=== PATIENT | male | born 1950 | race Caucasian/White ===

== ENCOUNTER 2019-02-16 19:23 | Inpatient (IN) | payer OTHER ==
[~2019-02-16] VITALS: Ht 172.7 cm; Wt 83.4 kg
[2019-02-16] MEDS ORDERED: ALBU3IS INH (20:32)
[2019-02-16] MEDS ORDERED: ALBU2.5V5 NEB (20:32)
[2019-02-16] MEDS ORDERED: ASCO500 PO (20:33)
[2019-02-16] MEDS ORDERED: AMLO10 PO (20:33)
[2019-02-16] MEDS ORDERED: Flonase 0.05% N16 GM (20:34)
[2019-02-16] MEDS ORDERED: GUAI200 PO (20:35)
[2019-02-16] MEDS ORDERED: Norco 10-325 T1 EACH PO (20:35)
[2019-02-16] MEDS ORDERED: LISI20 PO (20:36)
[2019-02-16] MEDS ORDERED: MOME220I INH (20:37)
[2019-02-16] MEDS ORDERED: THERA1 EACH PO (20:37)
[2019-02-16] MEDS ORDERED: STIOLTO RESPIMAT4 GM INH (20:38)
[2019-02-16] MEDS ORDERED: PANT40 PO (20:39)
[2019-02-16] MEDS ORDERED: PRED5 PO (20:39)
[2019-02-16 21:17] LABS: BASOPHILS ABSOLUTE AUTO 0.08 K/mm3 (0.00-0.23); BASOPHILS PERCENT AUTO 1 % (0-2); EOSINOPHILS ABSOLUTE AUTO 0.07 K/mm3 (0.00-0.68); EOSINOPHILS PERCENT AUTO 0 % (0-6); Hematocrit 35.4 % (37.0-53.0); Hemoglobin 11.6 g/dL (13.5-17.5); IMMATURE GRAN ABSOLUTE AUTO 0.08 K/mm3 (0.00-0.10); IMMATURE GRAN PERCENT AUTO 1 % (0-1); LYMPHOCYTES ABSOLUTE AUTO 1.53 K/mm3 (0.84-5.20); LYMPHOCYTES PERCENT AUTO 10 % (21-46); MONOCYTES ABSOLUTE AUTO 1.07 K/mm3 (0.16-1.47); MONOCYTES PERCENT AUTO 7 % (4-13); Mean Corpuscular HGB 30.3 pg (26.0-34.0); Mean Corpuscular HGB Conc 32.8 g/dL (31.5-36.5); Mean Corpuscular Volume 92 fL (80-100); Mean Platelet Volume 9.5 fL (9.1-12.4); NEUTROPHILS ABSOLUTE AUTO 13.16 K/mm3 (1.96-9.15); NEUTROPHILS PERCENT AUTO 82 % (41-73); Platelet Count 342 K/mm3 (150-400); RDW Coefficient Variation 12.4 % (11.7-14.2); RDW Standard Deviation 42.1 fL (35.1-46.3); Red Blood Cell Count 3.83 M/mm3 (4.30-5.90); White Blood Cell Count 15.99 K/mm3 (4.00-11.30)
[2019-02-16 21:42] LABS: Alanine Aminotransfer (ALT/SGP 12 U/L (12-78); Albumin/Globulin Ratio 0.7 (0.8-1.8); Alk Phos 63 U/L (50-136); Anion Gap 7 mmol/L (6-16); Aspartate Aminotrans (AST/SGOT 12 U/L (12-37); Bilirubin, Total 0.4 mg/dL (0.1-1.0); Blood Urea Nitrogen 14 mg/dL (8-24); Bun/Creatinine Ratio 20.3 (12.0-20.0); CO2, Blood 26 mmol/L (21-32); Calcium, Blood 8.8 mg/dL (8.5-10.1); Chloride, Blood 105 mmol/L (98-108); Creatinine, Blood 0.69 mg/dL (0.60-1.20); Globulin, Blood 4.1 g/dL (2.2-4.0); Glomerular Filtration Rate >60 (60-); Glucose, Blood 100 mg/dL (70-99); Sodium, Blood 138 mmol/L (136-145); Total Protein, Blood 7.1 g/dL (6.4-8.2)
[2019-02-17 04:46] LABS: BASOPHILS ABSOLUTE AUTO 0.05 K/mm3 (0.00-0.23); BASOPHILS PERCENT AUTO 0 % (0-2); EOSINOPHILS ABSOLUTE AUTO 0.02 K/mm3 (0.00-0.68); EOSINOPHILS PERCENT AUTO 0 % (0-6); Hematocrit 35.4 % (37.0-53.0); Hemoglobin 11.2 g/dL (13.5-17.5); IMMATURE GRAN ABSOLUTE AUTO 0.06 K/mm3 (0.00-0.10); IMMATURE GRAN PERCENT AUTO 0 % (0-1); LYMPHOCYTES ABSOLUTE AUTO 1.02 K/mm3 (0.84-5.20); LYMPHOCYTES PERCENT AUTO 7 % (21-46); MONOCYTES PERCENT AUTO 1 % (4-13); Mean Corpuscular HGB 29.1 pg (26.0-34.0); Mean Corpuscular HGB Conc 31.6 g/dL (31.5-36.5); Mean Corpuscular Volume 92 fL (80-100); Mean Platelet Volume 9.6 fL (9.1-12.4); NEUTROPHILS ABSOLUTE AUTO 12.91 K/mm3 (1.96-9.15); NEUTROPHILS PERCENT AUTO 91 % (41-73); Platelet Count 305 K/mm3 (150-400); RDW Coefficient Variation 12.4 % (11.7-14.2); Red Blood Cell Count 3.85 M/mm3 (4.30-5.90); White Blood Cell Count 14.26 K/mm3 (4.00-11.30)
[2019-02-17 05:01] LABS: International Normalized Ratio 1.13; Prothrombin Time Results 11.8 Sec (9.7-11.5)
[2019-02-17 05:08] LABS: Anion Gap 9 mmol/L (6-16); Blood Urea Nitrogen 16 mg/dL (8-24); Bun/Creatinine Ratio 22.1 (12.0-20.0); CO2, Blood 23 mmol/L (21-32); Calcium, Blood 8.6 mg/dL (8.5-10.1); Chloride, Blood 105 mmol/L (98-108); Creatinine, Blood 0.73 mg/dL (0.60-1.20); Glomerular Filtration Rate >60 (60-); Glucose, Blood 116 mg/dL (70-99); Potassium, Blood 4.1 mmol/L (3.5-5.5); Sodium, Blood 137 mmol/L (136-145)
--- NOTE | 2019-02-17 07:26 | NUR ---
call light in reach, ns infusing in iv in r ac, room air refused cpap, non productive cough, bsr report given to day shift nurse
--- NOTE | 2019-02-17 18:46 | NUR ---
PT AOX4 AND COOPERATIVE OF CARE. PT HAS BEEN RESTING IN BED ALL DAY. PT REPORTS KNECK AND CHEST PAIN TREATED PER EMAR. THIS SEEMS EFFECTIVE. PT STATES HE HAS THIS TYPE OF PAIN CHRONICALLY. PT STATES HE IS FEELING BETTER. PT DOES COUGH OFF AND ON. WILL CONTINUE TO MONITOR.
--- NOTE | 2019-02-17 22:13 | NUR ---
PT HAVING INCREASED ANXIETY WITH DYSPNEA, RECEIVED BREATHING TREATMENT WITHOUT RELIEF. PT VOICED HE HAS TAKEN ATIVAN IN PAST FOR ANXIETY. Amilcar LÓPEZ NP NOTIFIED WITH ORDERS FOR ATIVAN 1 MG PO NOW.
[2019-02-18 05:26] LABS: BASOPHILS ABSOLUTE AUTO 0.04 K/mm3 (0.00-0.23); BASOPHILS PERCENT AUTO 0 % (0-2); EOSINOPHILS PERCENT AUTO 0 % (0-6); Hematocrit 33.7 % (37.0-53.0); Hemoglobin 10.5 g/dL (13.5-17.5); IMMATURE GRAN ABSOLUTE AUTO 0.25 K/mm3 (0.00-0.10); IMMATURE GRAN PERCENT AUTO 1 % (0-1); LYMPHOCYTES ABSOLUTE AUTO 0.77 K/mm3 (0.84-5.20); LYMPHOCYTES PERCENT AUTO 3 % (21-46); MONOCYTES ABSOLUTE AUTO 0.49 K/mm3 (0.16-1.47); MONOCYTES PERCENT AUTO 2 % (4-13); Mean Corpuscular HGB 28.9 pg (26.0-34.0); Mean Corpuscular HGB Conc 31.2 g/dL (31.5-36.5); Mean Corpuscular Volume 93 fL (80-100); Mean Platelet Volume 9.9 fL (9.1-12.4); NEUTROPHILS ABSOLUTE AUTO 25.39 K/mm3 (1.96-9.15); NEUTROPHILS PERCENT AUTO 94 % (41-73); Platelet Count 326 K/mm3 (150-400); Red Blood Cell Count 3.63 M/mm3 (4.30-5.90); White Blood Cell Count 26.94 K/mm3 (4.00-11.30)
[2019-02-18 05:53] LABS: Albumin, Blood 2.7 g/dL (3.4-5.0); Anion Gap 8 mmol/L (6-16); Blood Urea Nitrogen 28 mg/dL (8-24); Bun/Creatinine Ratio 29.9 (12.0-20.0); CO2, Blood 25 mmol/L (21-32); Calcium, Blood 8.8 mg/dL (8.5-10.1); Chloride, Blood 105 mmol/L (98-108); Creatinine, Blood 0.94 mg/dL (0.60-1.20); Glomerular Filtration Rate >60 (60-); Glucose, Blood 188 mg/dL (70-99); Phosphorus, Blood 2.4 mg/dL (2.5-4.9); Potassium, Blood 3.7 mmol/L (3.5-5.5); Sodium, Blood 138 mmol/L (136-145)
--- NOTE | 2019-02-18 06:55 | NUR ---
68 Y/O MALE HAD RESTLESS NIGHT WITH OCCASIONAL NON PRODUCTIVE, HARSH COUGH NOTED. PTS VOICED THAT HE PULLED SMALL PIECE DRIED SKIN FROM HIS LOWER LIP AND HAS SCANT BLEEDING AT TIMES NOTED. THIS NURSE PROVIDED AND ENCOURAGED PATIENT TO APPLY LIP OINTMENT GENEROUSLY TO LIPS WITH ACKNOWLEDGEMENT NOTED. PTS LUNGS ARE DIMINISHED THROUGHOUT. PT EDUCATED ON NEED TO QUIT SMOKING (SMOKES 1/2 TO 1 PACK A DAY CURRENTLY RIGHT NOW). PT DENIES PAIN OR NAUSEA. PT ALERT AND ORIENTED X 4. PTS TELEMETRY REFLECTS PER [employer] DIRECTOR ELISHA NSR WITH BBB AND OCCASIONAL PAC WITH HEART RATE 68. PTS BED LOW POSITION, CALL LIGHT AT SIDE.
[2019-02-18 10:53] LABS: Vancomycin, Trough 14.7 ug/mL (5.0-10.0)
--- NOTE | 2019-02-18 19:42 | NUR ---
SHIFT SUMMARY PT A&Ox4. ANXIOUS AND COOPERTIVE WITH CARE. PT RESTING IN BED DURING IN SHIFT, IND IN ROOM. PT REPORTS CHRONIC NECK/BACK PAIN, MEDICATED X2 PER EMAR. PT SOB AT REST AT TIMES, SOB WITH EXERTION, >92% ON RA, LS DIM, BREATHING TREATMENTS PER RT. PT REPROTS NAUSEA WITH ONE EPISODE EMESIS, REFUSED MEDICATIONS. PT RECIEVED IN ANTIBIOTICS AND STEROIDS. DR POWELL AT BEDSIDE THIS AFTERNOON. VSS. NO OTHER ACUTE CHANGES NOTED DURING SHIFT. REPORT GIVEN TO ONCOMING RN.
[2019-02-19 04:43] LABS: BASOPHILS ABSOLUTE AUTO 0.04 K/mm3 (0.00-0.23); BASOPHILS PERCENT AUTO 0 % (0-2); EOSINOPHILS PERCENT AUTO 0 % (0-6); Hematocrit 32.6 % (37.0-53.0); Hemoglobin 10.5 g/dL (13.5-17.5); IMMATURE GRAN ABSOLUTE AUTO 0.47 K/mm3 (0.00-0.10); IMMATURE GRAN PERCENT AUTO 2 % (0-1); LYMPHOCYTES ABSOLUTE AUTO 0.62 K/mm3 (0.84-5.20); LYMPHOCYTES PERCENT AUTO 2 % (21-46); MONOCYTES PERCENT AUTO 2 % (4-13); Mean Corpuscular HGB 29.5 pg (26.0-34.0); Mean Corpuscular HGB Conc 32.2 g/dL (31.5-36.5); Mean Corpuscular Volume 92 fL (80-100); NEUTROPHILS ABSOLUTE AUTO 25.77 K/mm3 (1.96-9.15); NEUTROPHILS PERCENT AUTO 94 % (41-73); Platelet Count 330 K/mm3 (150-400); RDW Coefficient Variation 12.3 % (11.7-14.2); RDW Standard Deviation 41.4 fL (35.1-46.3); Red Blood Cell Count 3.56 M/mm3 (4.30-5.90)
[2019-02-19 04:58] LABS: Albumin, Blood 2.6 g/dL (3.4-5.0); Anion Gap 6 mmol/L (6-16); Blood Urea Nitrogen 29 mg/dL (8-24); Bun/Creatinine Ratio 35.5 (12.0-20.0); CO2, Blood 26 mmol/L (21-32); Calcium, Blood 8.8 mg/dL (8.5-10.1); Chloride, Blood 109 mmol/L (98-108); Creatinine, Blood 0.82 mg/dL (0.60-1.20); Glomerular Filtration Rate >60 (60-); Glucose, Blood 183 mg/dL (70-99); Phosphorus, Blood 2.3 mg/dL (2.5-4.9); Sodium, Blood 141 mmol/L (136-145)
--- NOTE | 2019-02-19 06:08 | NUR ---
SHIFT SUMMARY: 68 Y/O MALE HAD OCCASIONAL BOUTS HARSH, LOUD COUGHING AT TIMES DURING SHIFT. PTS LUNG SOUNDS ARE DIMINISHED THROUGHOUT. PT HAS ANXIETY AT TIMES WITH ATIVAN 0.5MG IVP GIVEN X 1 AND NORCO 5/325MG PO X 1 GIVEN FOR BACK PAIN WITH RELIEF FELT. PT DENIES NAUSEA. PT RESTED HIGH FOWLERS POSITION ALL NIGHT. PT HAPPY AND COOPERATIVE. PTS BED LOW POSITION, CALL LIGHT AT SIDE.
--- NOTE | 2019-02-19 17:57 | NUR ---
PT HAS BEEN STABLE THIS SHIFT. PT HAS PERSISTENT DRY HARSH COUGH. PT STARTED ON TESSALON PEARLS SCHEDULED. MEDICATED WITH NORCO X2 THIS SHIFT FOR CHRONIC NECK PAIN. ATIVAN X1 FOR SIGNIFICANT ANXIETY WITH COUGHING ATTACK. TELE NSR. PT MIN ASSIST OOB, WORKED WELL WITH PT. DYSPNEA ON EXERTION. REMAINS ON RA. USING URINAL INDEP. EATING, DRINKING AND VOIDING WELL. AM LABS TO BE DRAWN. PT USES CALL LIGHT APPROPRIATELY NEEDED.
[2019-02-20 05:27] LABS: BASOPHILS ABSOLUTE AUTO 0.04 K/mm3 (0.00-0.23); BASOPHILS PERCENT AUTO 0 % (0-2); EOSINOPHILS PERCENT AUTO 0 % (0-6); Hematocrit 34.6 % (37.0-53.0); Hemoglobin 11.3 g/dL (13.5-17.5); IMMATURE GRAN ABSOLUTE AUTO 0.46 K/mm3 (0.00-0.10); IMMATURE GRAN PERCENT AUTO 2 % (0-1); LYMPHOCYTES ABSOLUTE AUTO 0.79 K/mm3 (0.84-5.20); LYMPHOCYTES PERCENT AUTO 4 % (21-46); MONOCYTES ABSOLUTE AUTO 0.41 K/mm3 (0.16-1.47); MONOCYTES PERCENT AUTO 2 % (4-13); Mean Corpuscular HGB 29.8 pg (26.0-34.0); Mean Corpuscular HGB Conc 32.7 g/dL (31.5-36.5); Mean Corpuscular Volume 91 fL (80-100); Mean Platelet Volume 9.9 fL (9.1-12.4); NEUTROPHILS ABSOLUTE AUTO 17.78 K/mm3 (1.96-9.15); NEUTROPHILS PERCENT AUTO 91 % (41-73); Platelet Count 322 K/mm3 (150-400); RDW Coefficient Variation 12.5 % (11.7-14.2); RDW Standard Deviation 41.7 fL (35.1-46.3); Red Blood Cell Count 3.79 M/mm3 (4.30-5.90); White Blood Cell Count 19.48 K/mm3 (4.00-11.30)
--- NOTE | 2019-02-20 05:50 | NUR ---
SHIFT SUMMARY PT ALERT AND ORIENTED, HAD A BETTER NIGHT THAN THE LAST TWO. SLEPT WELL, NOT MUCH COUGHING DURING THE NIGHT. RECEIVED PAIN MEDICATION X1 TONIGHT. ALSO RECEIVED IV ATIVAN X1. NO ACUTE EVENTS NOTED DURING THE NIGHT, WILL CONTINUE TO MONITOR.
[2019-02-20 05:56] LABS: Alanine Aminotransfer (ALT/SGP 22 U/L (12-78); Albumin, Blood 2.7 g/dL (3.4-5.0); Albumin/Globulin Ratio 0.8 (0.8-1.8); Alk Phos 49 U/L (50-136); Anion Gap 7 mmol/L (6-16); Aspartate Aminotrans (AST/SGOT 22 U/L (12-37); Bilirubin, Total 0.2 mg/dL (0.1-1.0); Blood Urea Nitrogen 26 mg/dL (8-24); Bun/Creatinine Ratio 35.6 (12.0-20.0); CO2, Blood 26 mmol/L (21-32); Calcium, Blood 8.6 mg/dL (8.5-10.1); Chloride, Blood 108 mmol/L (98-108); Creatinine, Blood 0.73 mg/dL (0.60-1.20); Globulin, Blood 3.6 g/dL (2.2-4.0); Glomerular Filtration Rate >60 (60-); Glucose, Blood 144 mg/dL (70-99); Magnesium, Blood 2.1 mg/dL (1.6-2.4); Sodium, Blood 141 mmol/L (136-145); Total Protein, Blood 6.3 g/dL (6.4-8.2)
[2019-02-20 06:01] LABS: Thyroid Stimulating Hormone 0.242 uIU/mL (0.360-4.800)
[2019-02-20] MEDS ORDERED: BENZ100A PO (14:30)
[2019-02-20] MEDS ORDERED: MIRT30ST MM (14:31)
[2019-02-20] MEDS ORDERED: LEVFLO500 PO (14:31)
[2019-02-20] MEDS ORDERED: PRED20 PO ×2 (14:32→14:33)
--- NOTE | 2019-02-20 17:43 | NUR ---
DISCHARGE NOTE PT DISCHARGED VIA W/C POV WITH SISTER. IV DISCONTINUED INTACT. LEFT MESSAGE FOR RAJANI IN CARE MANAGEMENT TO OBTAIN A PCP FOR PATIENT AT [facility]. CARE MANAGERS TO CALL PATIENT TO PROVIDE INFORMATION FOR FOLLOW UP. PT VERBALIZED UNDERSTANDING OF RX AND DISCHARGE INSTRUCTIONS AND ENCOURAGED TO RETURN TO ED IF SOB OR IF SYMPTOMS WORSEN. ALL BELONGINGS TAKEN WITH PATIENT AT TIME OF DISCHARGE.
== END 2019-02-20 17:50 | disposition home or self-care (01) | DRG 872 ==
LOC: ER 19:23 → MEDS 21:21 → ENPENDDIS 02-20 12:45 → MEDS 02-20 17:50
PROVIDERS: Family Medicine; Internal Medicine; Nurse Practitioner Acute Care; ADMIT Hospitalist
DX: A41.9 Sepsis, unspecified organism (principal); J44.1 Chronic obstructive pulmonary disease with (acute) exacerbation; F11.20 Opioid dependence, uncomplicated; A31.0 Pulmonary mycobacterial infection; J44.0 Chronic obstructive pulmonary disease with (acute) lower respiratory infection; F41.9 Anxiety disorder, unspecified; I10 Essential (primary) hypertension; M54.9 Dorsalgia, unspecified; G89.29 Other chronic pain; G47.33 Obstructive sleep apnea (adult) (pediatric); M06.9 Rheumatoid arthritis, unspecified; K21.9 Gastro-esophageal reflux disease without esophagitis; E78.5 Hyperlipidemia, unspecified; Z87.891 Personal history of nicotine dependence; J20.9 Acute bronchitis, unspecified
CPT/HCPCS: 36415; 71046; 80048; 80053; 80069; 80202; 83605; 83735; 83880; 84145; 84443; 84484; 85025; 85610; 87015; 87040; 87070; 87116; 87205; 87206; 94640; 94760; 96374; 96375; 97116; 97161; 97166; 97530; 99285-25; A9270; J0456; J1650; J1956; J2060; J2543; J2930; J3370; J7030; J7050

== ENCOUNTER 2020-02-09 07:26 | Emergency (ER) | payer OTHER, MEDICARE ==
[~2020-02-09] VITALS: Ht 172.7 cm; Wt 104.3 kg
[~2020-02-09 07:26] MED LIST: ALBU2.5V5 NEB; ALBU3IS INH; AMLO10 PO; ASCO500 PO; BENZ100A PO; Flonase 0.05% N16 GM; GUAI200 PO; LEVFLO500 PO; LISI20 PO; MIRT30ST MM; MOME220I INH; Norco 10-325 T1 EACH PO; PANT40 PO; PRED20 PO; PRED5 PO; STIOLTO RESPIMAT4 GM INH; THERA1 EACH PO
[2020-02-09 08:03] LABS: Source, Urine Catheter
[2020-02-09 08:19] LABS: Bilirubin, Urine Neg (Neg); Blood, Urine 5+ (Neg); Glucose Qualitative, Urine Neg (Neg); Ketones, Urine Neg (Neg); Leukocyte Esterase, Urine 1+ (Neg); Nitrite, Urine Pos (Neg); Protein, Urine 3+ (Neg); Specific Gravity, Urine 1.015 (1.003-1.022); Urobilinogen, Urine NORM (Normal)
[2020-02-09 08:28] LABS: Appearance, Urine Hazy (Clear); Color, Urine Yellow (P-Yellow)
[2020-02-09 08:30] LABS: Bacteria Mod /hpf; Red Blood Cells, Urine TNTC /hpf (0-2); Squamous Epithelial Cells Rare /hpf (Few)
[2020-02-09] MEDS ORDERED: CEPH500 PO (08:38)
== END 2020-02-09 09:01 | disposition home or self-care (01) ==
LOC: ER 07:26
PROVIDERS: Emergency Medicine
DX: N39.0 Urinary tract infection, site not specified (principal); R33.9 Retention of urine, unspecified; J44.9 Chronic obstructive pulmonary disease, unspecified; I10 Essential (primary) hypertension; E78.5 Hyperlipidemia, unspecified; K21.9 Gastro-esophageal reflux disease without esophagitis; F41.9 Anxiety disorder, unspecified; F43.10 Post-traumatic stress disorder, unspecified; G47.33 Obstructive sleep apnea (adult) (pediatric); Z88.8 Allergy status to other drugs, medicaments and biological substances; Z79.899 Other long term (current) drug therapy; Z87.891 Personal history of nicotine dependence
CPT/HCPCS: 51702; 51798; 81001; 87086; 99283-25; A9270-GY

== ENCOUNTER 2020-04-25 21:30 | Inpatient (IN) | payer OTHER, MEDICARE ==
[~2020-04-25] VITALS: Ht 177.8 cm; Wt 111.2 kg
[~2020-04-25 21:30] MED LIST changes: +CEPH500 PO
[2020-04-25 22:05] LABS: BASOPHILS ABSOLUTE AUTO 0.06 K/mm3 (0.00-0.23); BASOPHILS PERCENT AUTO 1 % (0-2); EOSINOPHILS ABSOLUTE AUTO 0.09 K/mm3 (0.00-0.68); EOSINOPHILS PERCENT AUTO 1 % (0-6); Hematocrit 32.9 % (37.0-53.0); Hemoglobin 10.3 g/dL (13.5-17.5); IMMATURE GRAN ABSOLUTE AUTO 0.06 K/mm3 (0.00-0.10); IMMATURE GRAN PERCENT AUTO 1 % (0-1); LYMPHOCYTES ABSOLUTE AUTO 2.01 K/mm3 (0.84-5.20); LYMPHOCYTES PERCENT AUTO 19 % (21-46); MONOCYTES PERCENT AUTO 9 % (4-13); Mean Corpuscular HGB 26.6 pg (26.0-34.0); Mean Corpuscular HGB Conc 31.3 g/dL (31.5-36.5); Mean Corpuscular Volume 85 fL (80-100); Mean Platelet Volume 9.1 fL (9.1-12.4); NEUTROPHILS ABSOLUTE AUTO 7.49 K/mm3 (1.96-9.15); NEUTROPHILS PERCENT AUTO 70 % (41-73); Platelet Count 436 K/mm3 (150-400); RDW Coefficient Variation 14.3 % (11.7-14.2); RDW Standard Deviation 44.1 fL (35.1-46.3); Red Blood Cell Count 3.87 M/mm3 (4.30-5.90); White Blood Cell Count 10.71 K/mm3 (4.00-11.30)
[2020-04-25 22:24] LABS: Magnesium, Blood 1.9 mg/dL (1.6-2.4)
[2020-04-25 22:25] LABS: Alanine Aminotransfer (ALT/SGP 14 U/L (12-78); Albumin, Blood 2.5 g/dL (3.4-5.0); Albumin/Globulin Ratio 0.5 (0.8-1.8); Alk Phos 63 U/L (50-136); Anion Gap 7 mmol/L (6-16); Aspartate Aminotrans (AST/SGOT 15 U/L (12-37); Bilirubin, Total 0.2 mg/dL (0.1-1.0); Blood Urea Nitrogen 11 mg/dL (8-24); Bun/Creatinine Ratio 11.3 (12.0-20.0); CO2, Blood 25 mmol/L (21-32); Calcium, Blood 8.5 mg/dL (8.5-10.1); Chloride, Blood 109 mmol/L (98-108); Creatinine, Blood 0.97 mg/dL (0.60-1.20); Globulin, Blood 4.7 g/dL (2.2-4.0); Glomerular Filtration Rate >60 (60-); Glucose, Blood 107 mg/dL (70-99); Potassium, Blood 3.5 mmol/L (3.5-5.5); Sodium, Blood 141 mmol/L (136-145); Total Protein, Blood 7.2 g/dL (6.4-8.2)
[2020-04-25 22:34] LABS: PCO2 Arterial 36.9 mmHg (35-45); PO2 Arterial 107 mmHg (80-100)
[2020-04-26] MEDS ORDERED: Naproxen250 MG PO (01:05)
[2020-04-26 02:40] LABS: Source, Urine Clean Catch
[2020-04-26 02:42] LABS: Blood, Urine 5+ (Neg); Glucose Qualitative, Urine Neg (Neg); Ketones, Urine 2+ (Neg); Leukocyte Esterase, Urine 3+ (Neg); Nitrite, Urine Neg (Neg); Protein, Urine 3+ (Neg); Specific Gravity, Urine 1.025 (1.003-1.022); Urobilinogen, Urine 2+ (Normal)
[2020-04-26 02:55] LABS: Appearance, Urine Cloudy (Clear); Bilirubin, Urine 1+ (Neg); Color, Urine Brown (P-Yellow)
[2020-04-26 02:56] LABS: Amorphous Light (0-Heavy); Bacteria Mod /hpf; Mucus Light (0-Heavy); Red Blood Cells, Urine TNTC /hpf (0-2); Squamous Epithelial Cells Not Seen /hpf (Few); White Blood Cells, Urine TNTC /hpf (0-5)
[2020-04-26] MEDS ORDERED: Hair, Skin & N1 EACH PO (03:12)
[2020-04-26] MEDS ORDERED: Prednisone10 MG PO (03:15)
--- NOTE | 2020-04-26 06:47 | NUR ---
04/26/20 0630 PT WAS ABLE TO SLEEP FOR SHORT TIME AFTER MEDICATED FOR PAIN AND COUGH. O2 AT 3LPM IA N/C. BP HAS BEEN HIGH AND WAS MEDICATED. STILL WITH SEVERE SOB JUST TALKING. SEE VITALS FOR O2 SATS. VOIDING QS.
--- NOTE | 2020-04-26 18:17 | NUR ---
PT HAS BEEN PLEASANT TODAY. PAIN MANAGED WITH NEW HOME NORCO DOSING. NO NEW CONCERNS AT THIS TIME. NEW IV PLACED TODAY. PT STATES FEELS IMPROVED TODAY. BED IN LOW POSITION, CALL LITE IN REACH, CALLS APPROP
[2020-04-27 00:46] LABS: Adenovirus Not Detected (NOT DETECT); Bordetella pertussis Not Detected (NOT DETECT); Chlamydophila pneumoniae Not Detected (NOT DETECT); Coronavirus 229E Not Detected (NOT DETECT); Coronavirus HKU1 Not Detected (NOT DETECT); Coronavirus NL63 Not Detected (NOT DETECT); Coronavirus OC43 Not Detected (NOT DETECT); Human Metapneumovirus Not Detected (NOT DETECT); Human Rhinovirus/Enterovirus Not Detected (NOT DETECT); Influenza A/2009-H1 Not Detected (NOT DETECT); Influenza A/H1 Not Detected (NOT DETECT); Influenza A/H3 Not Detected (NOT DETECT); Influenza B Not Detected (NOT DETECT); Mycoplasma pneumoniae Not Detected (NOT DETECT); Parainfluenza Virus 1 Not Detected (NOT DETECT); Parainfluenza Virus 2 Not Detected (NOT DETECT); Parainfluenza Virus 3 Not Detected (NOT DETECT); Parainfluenza Virus 4 Not Detected (NOT DETECT); Respiratory Syncytial Virus Not Detected (NOT DETECT); SARS-Cov-2 (COVID-19), BioFire Not Detected (NOT DETECT)
--- NOTE | 2020-04-27 04:27 | NUR ---
SHIFT SUMMARY PT HAS AHD NO ACUTE CHANGES THIS SHIFT, MEDICATED FOR NECK/BACK PAIN (05/09), PT SLEPT AFTER ADMIN THEN ON/OFF T/O THE NIGHT, NO OTHER C/O ANY KIND, A&O, ST BY ASSIT TO BR, USES CALL LIGHT APPROP, PT SLEEPING AT THIS TIME, WILL CONT TO MONITOR UNTIL REPORT GIVEN TO DAY RN.
[2020-04-27 05:15] LABS: BASOPHILS ABSOLUTE AUTO 0.01 K/mm3 (0.00-0.23); BASOPHILS PERCENT AUTO 0 % (0-2); EOSINOPHILS PERCENT AUTO 0 % (0-6); Hematocrit 31.5 % (37.0-53.0); Hemoglobin 9.8 g/dL (13.5-17.5); IMMATURE GRAN ABSOLUTE AUTO 0.12 K/mm3 (0.00-0.10); IMMATURE GRAN PERCENT AUTO 1 % (0-1); LYMPHOCYTES ABSOLUTE AUTO 0.78 K/mm3 (0.84-5.20); LYMPHOCYTES PERCENT AUTO 6 % (21-46); MONOCYTES ABSOLUTE AUTO 0.41 K/mm3 (0.16-1.47); MONOCYTES PERCENT AUTO 3 % (4-13); Mean Corpuscular HGB 26.3 pg (26.0-34.0); Mean Corpuscular HGB Conc 31.1 g/dL (31.5-36.5); Mean Corpuscular Volume 85 fL (80-100); Mean Platelet Volume 9.5 fL (9.1-12.4); NEUTROPHILS ABSOLUTE AUTO 11.78 K/mm3 (1.96-9.15); NEUTROPHILS PERCENT AUTO 90 % (41-73); Platelet Count 450 K/mm3 (150-400); RDW Coefficient Variation 13.8 % (11.7-14.2); RDW Standard Deviation 42.8 fL (35.1-46.3); Red Blood Cell Count 3.73 M/mm3 (4.30-5.90)
[2020-04-27 05:34] LABS: Alanine Aminotransfer (ALT/SGP 13 U/L (12-78); Albumin, Blood 2.4 g/dL (3.4-5.0); Albumin/Globulin Ratio 0.5 (0.8-1.8); Alk Phos 56 U/L (50-136); Anion Gap 8 mmol/L (6-16); Aspartate Aminotrans (AST/SGOT 10 U/L (12-37); Bilirubin, Total 0.2 mg/dL (0.1-1.0); Blood Urea Nitrogen 21 mg/dL (8-24); Bun/Creatinine Ratio 25.5 (12.0-20.0); CO2, Blood 25 mmol/L (21-32); Calcium, Blood 8.9 mg/dL (8.5-10.1); Chloride, Blood 103 mmol/L (98-108); Creatinine, Blood 0.82 mg/dL (0.60-1.20); Globulin, Blood 4.4 g/dL (2.2-4.0); Glomerular Filtration Rate >60 (60-); Glucose, Blood 199 mg/dL (70-99); Potassium, Blood 3.9 mmol/L (3.5-5.5); Sodium, Blood 136 mmol/L (136-145); Total Protein, Blood 6.8 g/dL (6.4-8.2)
--- NOTE | 2020-04-27 16:39 | NUR ---
SHIFT SUMMARY PATIENT MEDCIATED X2 FOR PAIN THIS SHIFT. PATIENT COUGHING FREQUENTLY WITH LARGE AMOUNTS OF STICKY PLEGM PRODUCED. PATIENT BECOMES SHORT OF BREATH AND REQUIRES TIME TO RECOVER. PATIENT MAINTAINING OXYGEN SATURATION ABOVE 92% ON ROOM AIR BUT BECOMES DYSPNEIC WITH MINIMAL ACTIVITY. NEW ORDERS FOR COUGH SUPPRESSANTS GIVEN. PATIENT UP SBA IN ROOM. EATING AND DRINKING WELL.
--- NOTE | 2020-04-28 04:55 | NUR ---
SHIFT SUMMARY PT HAS HAD NO ACUTE CHANGES THIS SHIFT, CONTINUES TO HAVE COUGHING SPELLS WHICH CAUSE PT TO BECOME SOB & VERY ANXIOUS, REPORTED POOR PAIN CONTROL & REC NEW ORDER FOR FENTAYL- REPORTS IMPROVED CONTROL, MEDICATED X2 FOR ELEVATED BP, SLEPT ON/OFF THRU THE NIGHT, UP WATCHING TV AT THIS TIME, CALL LIGHT IN REACH, WILL CONT TO MONITOR UNTIL REPORT GIVEN TO DAY RN.
--- NOTE | 2020-04-28 11:22 | NUR ---
brief meeting with pt during episode of shorness of breath. finally resting will return. Will see if [place] has directive on pt.
--- NOTE | 2020-04-28 18:52 | NUR ---
SHIFT SUMMARY PATIENT MEDICATED SEVERAL TIMES FOR PAIN THIS SHIFT. MEDICATED X1 FOR COUGH. PATIENT STATES HE IS FEELING SLIGHTLY BETTER BUT CONTINUES TO HAVE COUGHING FITS WITH ANY ACTIVITY AND AFTER BREATHING TREATMENTS. 2L/PRN FOR RECOVERY AFTER ACTIVITY. UP SBA TO BR, URINAL AT BEDSIDE. PALLIATIVE CARE CONSULTED. CALL LIGHT IN REACH.
--- NOTE | 2020-04-29 04:20 | NUR ---
SHIFT SUMMARY PT HAS HAD NO ACUTE CHANGES THIS SHIFT, MEDICATED PER OCT FOR PAIN, NO OTHER C/O ANY KIND, SLEPT BETTER LAST NIGHT THAN PREV 2 NIGHTS, COUGHING HAS DECREASED, PT WATCHING TV @ THIS TIME, CALL LIGHT IN REACH, WILL CONT TO MONITOR UNTIL REPORT GIVEN TO DAY RN.
--- NOTE | 2020-04-29 07:35 | NUR ---
ASSUMED CARE OF PT- BEDSIDE REPORT COMPLEATED WITH NIGHT RN YANET. PT ALERT AND ORIENTED SITTING UP INBED COMPLETING A BREATHING Tx AT THE TIME OF REPORT. PT ADMITTED FOR COPD EXACERBATION. PER REPORT PT GETS EXTREMELY SOB WITH ANY EXERTION. PT IS SLATED TO GET A DOSE OF LASIX TODAY (WHICH HE HAS NEVER BEFORE HAD). NIGHT RN STATED HE HAS URINARY FREQUENCY AND SOME FLANK PAIN,SHE PERFORMED A POST VOID BLADDER SCAN THAT SHOWED 41ML POST VOID. PT CURRENTLY APPEARS COMFORTABLE WITH NO S&S OF DISTRESS NOTED. NIGHT RN STATED HE GETS ANXIOUS WITH HIS SOB HOWEVER HE CAN NOT TAKE BENZODIAZIPINES. PER REPORT FROM NIGHT RN THE IV FENTANYL HELPS IN THESE CASES. SUGGESTION FROM NIGHT RN IS TO REQUEST AN IV PAIN MED THAT MIGHT LAST A BIT LONGER SUCH DILAUDID IN MICHELLE OF FENTANYL THAT WEARS OFF MORE RAPIDLY. WILL SPEAK WITH ON MORNING ROUNDS.
--- NOTE | 2020-04-29 13:30 | NUR ---
pt resting he is very anxious and painfull. Good eye contact and engaged in his conversation. pt is currently living with his mother due to his health. He is [facility]. Recieved his medical advance directive from the [place] and copy to chart and to medical records. pt denies headache balance disturbance or falls no dizziness. States his eye site is getting much worse and his tinitus is a little worse. He has two broken teeth which are not showing s/s of infection. He wears and upper denture and no other teeth. He is not having trouble swallowing but feels he has to gulp air and he feels at times he has to grunt to push the air out. He denies nausea appetieite is just ok he is belching and passing gas but feels firm and distented. He denies constipation or loose stool. He has frequency and urgency of urination. He denies painfull urination. He states he has had bouts of painfull urination and at one time needed a alvarez catheter. Nursing stated they did post void bladder scan no residuals. He has general moderate joint pain. He chews an on tobacco product wtih nicotine in it. He denies medical marijuana. No vitamins or homeopathics or alcohol. Pt states he has [place] care and his urologist who does most of his care. He not sure his urologist is up to date. Sugested he might call his care nurse manager athletics and update her so they can do carefull follow up care that is not delayed. He states he does not hav pulmonolgist. Pt states he is sleeping but not for long he wakes easily he feels the lack of sleep and pain are getting to him. Asked for what bothers him more the breathing or the pain. He stated pain. Sttes some releif with the frntanyl but it does not last. Reviewed stategies for oral hydration and comofor. Dashawn is trying heat and cold therapy for his ribs will review pain medications with phsysician and get dsoem artificial tears.
--- NOTE | 2020-04-29 14:43 | NUR ---
CALLED DR CARTAGENA- PT HAS BEEN IN QUITE A BIT OF PAIN T/O THE MORING, PAIN MEDICATION HAS NOT BEEN SUFFICIENT, SPOKE TO ON MORNING ROUNDS, PALLIATIVE CARE CAME TO SEE THE PT NEW ORDERS FOR PAIN MEDICATION WERE ORDERED BUT DON'T START UNTIL 2099. CALLED AND LEFT A MESSAGE ATTEMPTING TO REQUEST A FIRST DOSE NOW FOR MS MELE. AWAITING A CALL BACK.
--- NOTE | 2020-04-29 15:34 | NUR ---
CALLED AND SPOKE TO DR CARTAGENA RECIEVED ORDR FOR FIRST DOSE NOW OF MS CONTIN.
--- NOTE | 2020-04-29 17:21 | NUR ---
Pt more comfortable less labored repirations. Review with pt dosing of long acting narcotics and breakthrough meds. Warned his of s/s of somulence and hpoventilation advised him we can adjut medication down if needed. Review needs to maintain his care. He [place]ologist in [place] through the [place] but last telehealth appoinment was concelled. He has seen Dr. Her in the past. Suggested he advocate for care through their office for better continuity. He has not had a pulmonry function test in many years. Suggested he schedule one. Encouraged stategies of good sleep and rest and activity. Will have LEXIE Pressley follow up with some pulmonary education and outpt follow up as pt high rsik for readmission. Suggest some physical therapy as pt high risk of falls due to dyspnea and urinary urgency.
--- NOTE | 2020-04-29 18:43 | NUR ---
SHIFT SUMMARY- PT ALERT AND ORIENTED AND USES THE URINAL INDEPENDENTLY, FREQUENTLY THE PT BECOMES OUT OF BREATH WITH ANY EXERTION. PT HAS HAD PAIN T/O THE DAY THAT SEEMS WELL MANAGED AT THIS TIME. NEW PAIN MEDICATION ORDERS IN THE EMAR. PT STATES THE PAIN IS STILL 7/10 BUT HE DOES NOT APPEAR TO BE IN DISTRESS LIKE HE DID EARLIER IN THE SHIFT. PLACED A HEATING/COOLING PAD IN HIS BED ON HIS LOWER BACK TO HELP WITH THE PAIN AND HE STATED THE PAIN IS BETTER WITH THE COOLING ON IT. WILL PASS ON TO NIGHT RN IN BEDSIDE REPORT.
--- NOTE | 2020-04-30 05:33 | NUR ---
SHIFT SUMMARY PT A&O X4, HAS HAD NO ACUTE CHANGES THIS SHIFT. USES URINAL INDEPENDENTLY. PT HAS COMPLAINTS OF PAIN T/O THE NIGHT, MEDICATED PER MAR. PT STATES HE FEELS MUCH BETTER AND HAS SLEPT T/O THE NIGHT WITH FEWER COUGHING FITS THAN LAST NIGHT. PT USES CALL LIGHT APPROPRIATELY AND STATES THAT HE IS EXCITED THAT HE MIGHT GET TO GO HOME TODAY. PT IS IN NO APPARENT DISTRESS AND STATES NO OTHER NEEDS AT THIS TIME. WILL CONTINUE TO MONITOR UNTIL REPORT GIVEN TO DAY RN.
[2020-04-30 05:45] LABS: Anion Gap 6 mmol/L (6-16); Blood Urea Nitrogen 30 mg/dL (8-24); Bun/Creatinine Ratio 31.2 (12.0-20.0); CO2, Blood 30 mmol/L (21-32); Calcium, Blood 8.4 mg/dL (8.5-10.1); Chloride, Blood 102 mmol/L (98-108); Creatinine, Blood 0.96 mg/dL (0.60-1.20); Glomerular Filtration Rate >60 (60-); Glucose, Blood 100 mg/dL (70-99); Potassium, Blood 3.8 mmol/L (3.5-5.5); Sodium, Blood 138 mmol/L (136-145)
[2020-04-30] MEDS ORDERED: PRED20 PO (14:29)
[2020-04-30] MEDS ORDERED: ACET325 PO (14:30)
[2020-04-30] MEDS ORDERED: BENZ100A PO (14:32)
[2020-04-30] MEDS ORDERED: DEXT30SU PO (14:34)
[2020-04-30] MEDS ORDERED: HYDCHL25 PO (14:36)
[2020-04-30] MEDS ORDERED: IPRAT-ALBUT 0.5-3 ML INH (14:38)
[2020-04-30] MEDS ORDERED: MORP30ER PO (14:39)
[2020-04-30] MEDS ORDERED: NICO21TP TOP (14:41)
[2020-04-30] MEDS ORDERED: LIQUID TEARS BOTHEYES (14:48)
[2020-04-30] MEDS ORDERED: DEEP SEA NASAL SPRAY (14:51)
--- NOTE | 2020-04-30 16:04 | NUR ---
DISCHARGE 1540 PT IS A&O. DURING THE TIME SPENT WITH PT HE WAS IN PAIN THAT WAS BEING MEDICATED WITH PRN PAIN MEDS AND MORNING MEDICATION. PAIN WAS ABLE TO DECREASE TO A ACCEPTABLE PAIN LEVEL. OFFERED PT HOT/COLD THERPHY, AND MEDITATION CHANNEL, BOTH WERE DECLINED. PT PRACTICED DEEP BREATHING TO HELP WITH CONTROL PAIN LEVEL. MOVEMENT WOULD CAUSE PAIN LEVEL TO RISE. PT DID NOT COMPLAIN OF N/V. PT ADVISED TO USE CALL LIGHT WHEN MOVING AROUND THE ROOM. DC VOLUNTEER TOOK PT DOWN TO [facility] VIA WHEELCHAIR. IV REMOVED, AND WAS WNL. WENT OVER DC PACKET WITH PT AND EMPHASISED THE [facility], ADVISED HE COULD GO TO THERE URGENT CARE.
== END 2020-04-30 15:44 | disposition home or self-care (01) | DRG 871 ==
LOC: ER 21:30 → MEDS 21:31 → ER 04-26 02:39 → MEDS 04-26 02:45
PROVIDERS: Emergency Medicine; Family Medicine; ADMIT Family Medicine
DX: A41.9 Sepsis, unspecified organism (principal); J18.9 Pneumonia, unspecified organism; J44.1 Chronic obstructive pulmonary disease with (acute) exacerbation; C79.89 Secondary malignant neoplasm of other specified sites; R04.2 Hemoptysis; Z68.41 Body mass index [BMI] 40.0-44.9, adult; A31.0 Pulmonary mycobacterial infection; J44.0 Chronic obstructive pulmonary disease with (acute) lower respiratory infection; Z20.828 Contact with and (suspected) exposure to other viral communicable diseases; C67.9 Malignant neoplasm of bladder, unspecified; R10.11 Right upper quadrant pain; I10 Essential (primary) hypertension; E78.5 Hyperlipidemia, unspecified; K21.9 Gastro-esophageal reflux disease without esophagitis; M19.90 Unspecified osteoarthritis, unspecified site; F41.9 Anxiety disorder, unspecified; F43.10 Post-traumatic stress disorder, unspecified; G47.33 Obstructive sleep apnea (adult) (pediatric); N28.1 Cyst of kidney, acquired; D64.9 Anemia, unspecified; D47.3 Essential (hemorrhagic) thrombocythemia; R60.0 Localized edema; E66.9 Obesity, unspecified; M54.9 Dorsalgia, unspecified; G89.29 Other chronic pain; M54.12 Radiculopathy, cervical region; Z88.8 Allergy status to other drugs, medicaments and biological substances; Z88.5 Allergy status to narcotic agent; Z79.1 Long term (current) use of non-steroidal anti-inflammatories (NSAID); Z79.891 Long term (current) use of opiate analgesic; Z79.899 Other long term (current) drug therapy; Z87.891 Personal history of nicotine dependence
CPT/HCPCS: 0202U; 36415; 36600; 71045; 71260; 74177; 76770; 80048; 80053; 81001; 82803; 83605; 83735; 83880; 84484; 85025; 87040; 87070; 87077; 87086; 87186; 87205; 93005; 93010; 94640; 94760; 94761; 96365; 96375; 99285-25; A9270; A9270-GY; G0378; J0360; J0696; J2930; J3010; J7050; J7512; Q9967; U0002

== ENCOUNTER → 2020-06-20 | Outpatient (CLI) | payer OTHER, MEDICARE ==
[~2020-06-20] MED LIST changes: +ACET325 PO; +DEEP SEA NASAL SPRAY; +DEXT30SU PO; +HYDCHL25 PO; +Hair, Skin & N1 EACH PO; +IPRAT-ALBUT 0.5-3 ML INH; +LIQUID TEARS BOTHEYES; +MORP30ER PO; +NICO21TP TOP; +Naproxen250 MG PO; +Prednisone10 MG PO
== END | disposition home or self-care (01) ==
LOC: LAB 14:43 → LAB SHORT 14:43 → LAB FUT 06-07 08:00
DX: C67.9 Malignant neoplasm of bladder, unspecified (principal)
CPT/HCPCS: 88108

== ENCOUNTER → 2020-06-25 | Outpatient (CLI) | payer OTHER, MEDICARE | LOC: LAB SHORT 17:55 → LAB 17:55 | DX: Z48.817 Encounter for surgical aftercare following surgery on the skin and subcutaneous tissue (principal); Z48.02 Encounter for removal of sutures; L08.9 Local infection of the skin and subcutaneous tissue, unspecified | CPT/HCPCS: 87070; 87205 ==

== ENCOUNTER 2020-08-20 12:45 | Emergency (ER) | payer OTHER, MEDICARE ==
[~2020-08-20] VITALS: Ht 172.7 cm; Wt 104.3 kg
[2020-08-20 13:12] LABS: BASOPHILS PERCENT AUTO 1 % (0-2); EOSINOPHILS ABSOLUTE AUTO 0.73 K/mm3 (0.00-0.68); EOSINOPHILS PERCENT AUTO 7 % (0-6); Hematocrit 37.1 % (37.0-53.0); Hemoglobin 11.7 g/dL (13.5-17.5); IMMATURE GRAN ABSOLUTE AUTO 0.03 K/mm3 (0.00-0.10); IMMATURE GRAN PERCENT AUTO 0 % (0-1); LYMPHOCYTES ABSOLUTE AUTO 2.01 K/mm3 (0.84-5.20); LYMPHOCYTES PERCENT AUTO 18 % (21-46); MONOCYTES ABSOLUTE AUTO 0.83 K/mm3 (0.16-1.47); MONOCYTES PERCENT AUTO 8 % (4-13); Mean Corpuscular HGB 25.4 pg (26.0-34.0); Mean Corpuscular HGB Conc 31.5 g/dL (31.5-36.5); Mean Corpuscular Volume 81 fL (80-100); Mean Platelet Volume 9.7 fL (9.1-12.4); NEUTROPHILS ABSOLUTE AUTO 7.33 K/mm3 (1.96-9.15); NEUTROPHILS PERCENT AUTO 67 % (41-73); Platelet Count 312 K/mm3 (150-400); RDW Coefficient Variation 14.9 % (11.7-14.2); RDW Standard Deviation 43.5 fL (35.1-46.3); Red Blood Cell Count 4.61 M/mm3 (4.30-5.90); White Blood Cell Count 11.03 K/mm3 (4.00-11.30)
[2020-08-20 13:35] LABS: Alanine Aminotransfer (ALT/SGP 19 U/L (12-78); Albumin, Blood 3.5 g/dL (3.4-5.0); Alk Phos 73 U/L (50-136); Anion Gap 8 mmol/L (6-16); Aspartate Aminotrans (AST/SGOT 19 U/L (12-37); Bilirubin, Total 0.4 mg/dL (0.1-1.0); Blood Urea Nitrogen 15 mg/dL (8-24); Bun/Creatinine Ratio 17.4 (12.0-20.0); CO2, Blood 26 mmol/L (21-32); Chloride, Blood 109 mmol/L (98-108); Creatinine, Blood 0.86 mg/dL (0.60-1.20); Globulin, Blood 3.6 g/dL (2.2-4.0); Glomerular Filtration Rate >60 (60-); Glucose, Blood 107 mg/dL (70-99); Potassium, Blood 3.8 mmol/L (3.5-5.5); Sodium, Blood 143 mmol/L (136-145); Total Protein, Blood 7.1 g/dL (6.4-8.2)
[2020-08-20] MEDS ORDERED: AZIT250 PO (15:56)
[2020-08-20] MEDS ORDERED: PRED20 PO (15:56)
[2020-08-20] MEDS ORDERED: Ventolin/Prove6.7 GM INH (15:56)
== END 2020-08-20 16:39 | disposition home or self-care (01) ==
LOC: ER 12:45
PROVIDERS: Emergency Medicine
DX: J44.1 Chronic obstructive pulmonary disease with (acute) exacerbation (principal); I10 Essential (primary) hypertension; E78.5 Hyperlipidemia, unspecified; K21.9 Gastro-esophageal reflux disease without esophagitis; Z88.8 Allergy status to other drugs, medicaments and biological substances; Z79.52 Long term (current) use of systemic steroids; Z87.891 Personal history of nicotine dependence; Z79.899 Other long term (current) drug therapy
CPT/HCPCS: 36415; 71045; 80053; 85025; 94640; 94644; 96374; 96375; 99285-25; J2270; J2930

== ENCOUNTER 2020-09-06 12:29 | Emergency (ER) | payer OTHER, MEDICARE ==
[~2020-09-06] VITALS: Ht 172.7 cm; Wt 108.9 kg
[~2020-09-06 12:29] MED LIST changes: -ALBU2.5V5 NEB; -ASCO500 PO; +AZIT250 PO; -LISI20 PO; -Norco 10-325 T1 EACH PO; -PANT40 PO; +Ventolin/Prove6.7 GM INH
[2020-09-06 13:37] LABS: BASOPHILS ABSOLUTE AUTO 0.11 K/mm3 (0.00-0.23); BASOPHILS PERCENT AUTO 1 % (0-2); EOSINOPHILS ABSOLUTE AUTO 0.23 K/mm3 (0.00-0.68); EOSINOPHILS PERCENT AUTO 2 % (0-6); Hematocrit 38.1 % (37.0-53.0); Hemoglobin 11.8 g/dL (13.5-17.5); IMMATURE GRAN ABSOLUTE AUTO 0.03 K/mm3 (0.00-0.10); IMMATURE GRAN PERCENT AUTO 0 % (0-1); LYMPHOCYTES ABSOLUTE AUTO 1.02 K/mm3 (0.84-5.20); LYMPHOCYTES PERCENT AUTO 9 % (21-46); MONOCYTES ABSOLUTE AUTO 0.37 K/mm3 (0.16-1.47); MONOCYTES PERCENT AUTO 3 % (4-13); Mean Corpuscular HGB 25.2 pg (26.0-34.0); Mean Corpuscular Volume 81 fL (80-100); Mean Platelet Volume 9.7 fL (9.1-12.4); NEUTROPHILS ABSOLUTE AUTO 9.87 K/mm3 (1.96-9.15); NEUTROPHILS PERCENT AUTO 85 % (41-73); Platelet Count 256 K/mm3 (150-400); RDW Coefficient Variation 15.2 % (11.7-14.2); RDW Standard Deviation 43.9 fL (35.1-46.3); Red Blood Cell Count 4.69 M/mm3 (4.30-5.90); White Blood Cell Count 11.63 K/mm3 (4.00-11.30)
[2020-09-06 13:56] LABS: Alanine Aminotransfer (ALT/SGP 21 U/L (12-78); Albumin, Blood 3.7 g/dL (3.4-5.0); Alk Phos 72 U/L (50-136); Anion Gap 8 mmol/L (6-16); Aspartate Aminotrans (AST/SGOT 13 U/L (12-37); Bilirubin, Total 0.6 mg/dL (0.1-1.0); Blood Urea Nitrogen 16 mg/dL (8-24); Bun/Creatinine Ratio 18.3 (12.0-20.0); CO2, Blood 26 mmol/L (21-32); Calcium, Blood 8.8 mg/dL (8.5-10.1); Chloride, Blood 108 mmol/L (98-108); Creatinine, Blood 0.88 mg/dL (0.60-1.20); Globulin, Blood 3.6 g/dL (2.2-4.0); Glomerular Filtration Rate >60 (60-); Glucose, Blood 135 mg/dL (70-99); Potassium, Blood 3.8 mmol/L (3.5-5.5); Sodium, Blood 142 mmol/L (136-145); Total Protein, Blood 7.3 g/dL (6.4-8.2); Troponin I 0.042 ng/mL (0.000-0.040)
[2020-09-06] MEDS ORDERED: ZITHROMAX250 MG PO (14:42)
[2020-09-06] MEDS ORDERED: Prednisone20 MG PO (14:42)
[2020-09-06] MEDS ORDERED: NYSTRIT TOP (14:42)
[2020-12-20] MEDS ORDERED: CALCITONIN-SAL3.7 M5 (11:12)
== END 2020-09-06 15:03 | disposition home or self-care (01) ==
LOC: ER 12:29
PROVIDERS: Emergency Medicine
DX: J44.1 Chronic obstructive pulmonary disease with (acute) exacerbation (principal); Z79.52 Long term (current) use of systemic steroids; Z88.0 Allergy status to penicillin; Z79.899 Other long term (current) drug therapy; Z87.891 Personal history of nicotine dependence
CPT/HCPCS: 36415; 71045; 74176; 80053; 83880; 84484; 85025; 93005; 93010; 94640; 99285-25; A9270

== ENCOUNTER 2020-10-31 18:47 | Emergency (ER) | payer OTHER, MEDICARE ==
[~2020-10-31] VITALS: Ht 172.7 cm; Wt 113.4 kg
[~2020-10-31 18:47] MED LIST changes: +NYSTRIT TOP; +Prednisone20 MG PO; +ZITHROMAX250 MG PO
[2020-10-31 19:39] LABS: BASOPHILS ABSOLUTE AUTO 0.07 K/mm3 (0.00-0.23); BASOPHILS PERCENT AUTO 1 % (0-2); EOSINOPHILS ABSOLUTE AUTO 0.16 K/mm3 (0.00-0.68); EOSINOPHILS PERCENT AUTO 2 % (0-6); Hematocrit 33.9 % (37.0-53.0); Hemoglobin 10.9 g/dL (13.5-17.5); IMMATURE GRAN ABSOLUTE AUTO 0.02 K/mm3 (0.00-0.10); IMMATURE GRAN PERCENT AUTO 0 % (0-1); LYMPHOCYTES ABSOLUTE AUTO 1.63 K/mm3 (0.84-5.20); LYMPHOCYTES PERCENT AUTO 18 % (21-46); MONOCYTES ABSOLUTE AUTO 0.91 K/mm3 (0.16-1.47); MONOCYTES PERCENT AUTO 10 % (4-13); Mean Corpuscular HGB 27.3 pg (26.0-34.0); Mean Corpuscular HGB Conc 32.2 g/dL (31.5-36.5); Mean Corpuscular Volume 85 fL (80-100); Mean Platelet Volume 9.7 fL (9.1-12.4); NEUTROPHILS ABSOLUTE AUTO 6.45 K/mm3 (1.96-9.15); NEUTROPHILS PERCENT AUTO 70 % (41-73); Platelet Count 255 K/mm3 (150-400); RDW Coefficient Variation 15.3 % (11.7-14.2); White Blood Cell Count 9.24 K/mm3 (4.00-11.30)
[2020-10-31 20:02] LABS: Anion Gap 6 mmol/L (6-16); Blood Urea Nitrogen 19 mg/dL (8-24); Bun/Creatinine Ratio 19.3 (12.0-20.0); CO2, Blood 26 mmol/L (21-32); Calcium, Blood 8.7 mg/dL (8.5-10.1); Chloride, Blood 108 mmol/L (98-108); Creatinine, Blood 0.98 mg/dL (0.60-1.20); Glomerular Filtration Rate >60 (60-); Glucose, Blood 130 mg/dL (70-99); Potassium, Blood 4.1 mmol/L (3.5-5.5); Sodium, Blood 140 mmol/L (136-145); Troponin I <0.015 ng/mL (0.000-0.040)
[2020-10-31] MEDS ORDERED: Prednisone50 MG PO (22:11)
[2020-10-31] MEDS ORDERED: Lasix40 MG PO (22:11)
[2020-12-20] MEDS ORDERED: CALCITONIN-SAL3.7 M5 (11:12)
== END 2020-10-31 22:41 | disposition home or self-care (01) ==
LOC: ER 18:47
PROVIDERS: Student in an Organized Health Care Education/Training Program
DX: J44.1 Chronic obstructive pulmonary disease with (acute) exacerbation (principal); Z88.8 Allergy status to other drugs, medicaments and biological substances; Z79.52 Long term (current) use of systemic steroids; Z79.899 Other long term (current) drug therapy
CPT/HCPCS: 36415; 71045; 80048; 83880; 84484; 85025; 93005; 93010; 94640; 99285-25; A9270

== ENCOUNTER 2020-11-15 14:13 | Inpatient (IN) | payer OTHER, MEDICARE ==
[~2020-11-15] VITALS: Ht 172.7 cm; Wt 126.5 kg
[~2020-11-15 14:13] MED LIST changes: +Lasix40 MG PO; +Prednisone50 MG PO
[2020-11-15 14:30] LABS: Base Excess Venous 0 mmol/L; Bicarbonate Venous 24.1 mmol/L (24.0-30.0); PCO2 Venous 40.8 mmHg (38-42); PO2 Venous 49.5 mmHg (38-42); pH Blood Venous 7.39 (7.34-7.37)
[2020-11-15 14:38] LABS: BASOPHILS ABSOLUTE AUTO 0.12 K/mm3 (0.00-0.23); BASOPHILS PERCENT AUTO 1 % (0-2); EOSINOPHILS ABSOLUTE AUTO 0.25 K/mm3 (0.00-0.68); EOSINOPHILS PERCENT AUTO 2 % (0-6); Hematocrit 35.1 % (37.0-53.0); Hemoglobin 11.2 g/dL (13.5-17.5); IMMATURE GRAN ABSOLUTE AUTO 0.04 K/mm3 (0.00-0.10); IMMATURE GRAN PERCENT AUTO 0 % (0-1); LYMPHOCYTES ABSOLUTE AUTO 1.53 K/mm3 (0.84-5.20); LYMPHOCYTES PERCENT AUTO 12 % (21-46); MONOCYTES ABSOLUTE AUTO 1.05 K/mm3 (0.16-1.47); MONOCYTES PERCENT AUTO 8 % (4-13); Mean Corpuscular HGB 26.7 pg (26.0-34.0); Mean Corpuscular HGB Conc 31.9 g/dL (31.5-36.5); Mean Corpuscular Volume 84 fL (80-100); Mean Platelet Volume 9.5 fL (9.1-12.4); NEUTROPHILS ABSOLUTE AUTO 9.67 K/mm3 (1.96-9.15); NEUTROPHILS PERCENT AUTO 76 % (41-73); Platelet Count 323 K/mm3 (150-400); RDW Coefficient Variation 15.1 % (11.7-14.2); RDW Standard Deviation 45.2 fL (35.1-46.3); Red Blood Cell Count 4.19 M/mm3 (4.30-5.90); White Blood Cell Count 12.66 K/mm3 (4.00-11.30)
[2020-11-15 15:07] LABS: Alanine Aminotransfer (ALT/SGP 23 U/L (12-78); Albumin, Blood 3.3 g/dL (3.4-5.0); Albumin/Globulin Ratio 0.9 (0.8-1.8); Alk Phos 73 U/L (50-136); Anion Gap 8 mmol/L (6-16); Aspartate Aminotrans (AST/SGOT 17 U/L (12-37); Bilirubin, Total 0.4 mg/dL (0.1-1.0); Blood Urea Nitrogen 9 mg/dL (8-24); Bun/Creatinine Ratio 9.5 (12.0-20.0); CO2, Blood 26 mmol/L (21-32); Calcium, Blood 8.5 mg/dL (8.5-10.1); Chloride, Blood 108 mmol/L (98-108); Creatinine, Blood 0.95 mg/dL (0.60-1.20); Globulin, Blood 3.6 g/dL (2.2-4.0); Glomerular Filtration Rate >60 (60-); Glucose, Blood 114 mg/dL (70-99); Potassium, Blood 3.7 mmol/L (3.5-5.5); Sodium, Blood 142 mmol/L (136-145); Total Protein, Blood 6.9 g/dL (6.4-8.2); Troponin I <0.015 ng/mL (0.000-0.040)
[2020-11-15 18:57] LABS: Influenza A, PCR NEGATIVE (NEGATIVE); Influenza B, PCR NEGATIVE (NEGATIVE); Resp Syncytial Virus, PCR NEGATIVE (NEGATIVE); SARS-Cov-2 (COVID-19) PCR, MMC NEGATIVE (NEGATIVE)
[2020-11-16 04:01] LABS: BASOPHILS ABSOLUTE AUTO 0.03 K/mm3 (0.00-0.23); BASOPHILS PERCENT AUTO 0 % (0-2); EOSINOPHILS PERCENT AUTO 0 % (0-6); Hematocrit 34.1 % (37.0-53.0); Hemoglobin 10.9 g/dL (13.5-17.5); IMMATURE GRAN ABSOLUTE AUTO 0.03 K/mm3 (0.00-0.10); IMMATURE GRAN PERCENT AUTO 0 % (0-1); LYMPHOCYTES ABSOLUTE AUTO 0.43 K/mm3 (0.84-5.20); LYMPHOCYTES PERCENT AUTO 4 % (21-46); MONOCYTES ABSOLUTE AUTO 0.07 K/mm3 (0.16-1.47); MONOCYTES PERCENT AUTO 1 % (4-13); Mean Corpuscular HGB 26.5 pg (26.0-34.0); Mean Corpuscular Volume 83 fL (80-100); NEUTROPHILS ABSOLUTE AUTO 10.19 K/mm3 (1.96-9.15); NEUTROPHILS PERCENT AUTO 95 % (41-73); Platelet Count 309 K/mm3 (150-400); RDW Coefficient Variation 15.1 % (11.7-14.2); RDW Standard Deviation 44.9 fL (35.1-46.3); Red Blood Cell Count 4.11 M/mm3 (4.30-5.90); White Blood Cell Count 10.75 K/mm3 (4.00-11.30)
[2020-11-16 04:22] LABS: Anion Gap 7 mmol/L (6-16); Blood Urea Nitrogen 15 mg/dL (8-24); Bun/Creatinine Ratio 16.4 (12.0-20.0); CO2, Blood 26 mmol/L (21-32); Calcium, Blood 8.9 mg/dL (8.5-10.1); Chloride, Blood 106 mmol/L (98-108); Creatinine, Blood 0.91 mg/dL (0.60-1.20); Glomerular Filtration Rate >60 (60-); Glucose, Blood 193 mg/dL (70-99); Potassium, Blood 4.5 mmol/L (3.5-5.5); Sodium, Blood 139 mmol/L (136-145)
--- NOTE | 2020-11-16 05:04 | NUR ---
SENIOR MAINTENANCE MECHANIC SUMMARY THE PT HAS REMAINED ON BIPAP ALL NIGHT W O2 SATS >94% W 30% O2. THE PT HAS C/O PAIN IN LOW BACK THAT IS NOT RESOLVED W HIS PAIN MEDICATION. THE PT HAS SLEPT FOR MOST OF THE SHIFT. BP WNL, VSS. WCTM. THERE IS A OPEN HOLE IN THE PT'S R ABDOMEN THAT HE STATES HE HAS NOT SHOWN THE PROVIDER, WILL PASS ON TO DAYSHIFT RN.
--- NOTE | 2020-11-16 13:13 | NUR ---
PHYSICIAN UPDATED PHYSICIAN UPDATED ON PT'S INCREASE IN PAIN LEVEL. MEDICATION ORDERED, SEE EMAR. PHYSICIAN NOTIFIED OF ULCER ON PT'S ABD. PHYSICIAN TO ASSESS WOUND TODAY OR TOMORROW. MEPLEX IN PLACE.
--- NOTE | 2020-11-16 19:00 | NUR ---
SHIFT SUMMARY PT ALERT AND ORIENTED X 4. PT OXYGEN SATURATION MAINTAINED AT 30% FIO2 BIPAP AND 2 L OF OXYGEN VIA NC. PT WORKED WITH PT THIS AM. ABLE TO TOLERATE FWW. HR STABLE. BP STABLE. PT REPORTS NO CP OR PRESSURE. PT REPORTS PAIN. PHYSICIAN AWARE, ORDERS PROVIDED PER EMAR. PAIN IS CHRONIC IN BACK/HIPS. PT ABLE TO TURN SELF IN BED NEEDED. WILL CONTINUE TO MONITOR UNTIL REPORT GIVEN TO DEJAH OWEN.
[2020-11-17 03:52] LABS: BASOPHILS ABSOLUTE AUTO 0.03 K/mm3 (0.00-0.23); BASOPHILS PERCENT AUTO 0 % (0-2); EOSINOPHILS ABSOLUTE AUTO 0.01 K/mm3 (0.00-0.68); EOSINOPHILS PERCENT AUTO 0 % (0-6); Hematocrit 31.8 % (37.0-53.0); Hemoglobin 10.2 g/dL (13.5-17.5); IMMATURE GRAN ABSOLUTE AUTO 0.12 K/mm3 (0.00-0.10); IMMATURE GRAN PERCENT AUTO 1 % (0-1); LYMPHOCYTES ABSOLUTE AUTO 0.77 K/mm3 (0.84-5.20); LYMPHOCYTES PERCENT AUTO 4 % (21-46); MONOCYTES ABSOLUTE AUTO 0.69 K/mm3 (0.16-1.47); MONOCYTES PERCENT AUTO 4 % (4-13); Mean Corpuscular HGB 26.8 pg (26.0-34.0); Mean Corpuscular HGB Conc 32.1 g/dL (31.5-36.5); Mean Corpuscular Volume 84 fL (80-100); Mean Platelet Volume 9.7 fL (9.1-12.4); NEUTROPHILS ABSOLUTE AUTO 18.06 K/mm3 (1.96-9.15); NEUTROPHILS PERCENT AUTO 92 % (41-73); Platelet Count 296 K/mm3 (150-400); RDW Coefficient Variation 15.1 % (11.7-14.2); RDW Standard Deviation 45.4 fL (35.1-46.3); White Blood Cell Count 19.68 K/mm3 (4.00-11.30)
[2020-11-17 04:08] LABS: Albumin, Blood 3.1 g/dL (3.4-5.0); Anion Gap 7 mmol/L (6-16); Blood Urea Nitrogen 32 mg/dL (8-24); Bun/Creatinine Ratio 32.7 (12.0-20.0); CO2, Blood 26 mmol/L (21-32); Chloride, Blood 106 mmol/L (98-108); Creatinine, Blood 0.98 mg/dL (0.60-1.20); Glomerular Filtration Rate >60 (60-); Glucose, Blood 169 mg/dL (70-99); Phosphorus, Blood 4.3 mg/dL (2.5-4.9); Potassium, Blood 4.6 mmol/L (3.5-5.5); Sodium, Blood 139 mmol/L (136-145)
--- NOTE | 2020-11-17 04:28 | NUR ---
EARLY YEARS TEACHER SUMMARY THE PT HAS REMAINED AXO X4. DR. FLANAGAN CONSULTED THE PT AT THE START OF THE SHFIT AND DURING THIS DISCUSSION THE CODE STATUS WAS TALKED ABOUT AND CHANGED FROM A DNI TO A DNR. THE PT WAS ON BIPAP FOR MUCH OF THE NIGHT AND THEN PLACED ON 2L VIA NC W O2 SATS >94%. PT CONTINUES TO HAVE SEVERE BACK PAIN AND GIVEN PAIN MEDICATION Q4H PER EMAR. PT SLEPT FOR MOST OF THE NIGHT W BIPAP ON. WCTM.
--- NOTE | 2020-11-17 10:55 | NUR ---
PHYSICIAN UPDATE/PT REPORTS CHEST PAIN PT REPORTS PAIN RADIATING DOWN R ARM AND INTO JAW. 06/08. VS STABLE. 12 LEAD EKG PROVIDED. PHYSICIAN INFORMED OF EKG RESULTS. INSTRUCTED TO GIVE PAIN MEDICATION PER EMAR. PT TO BE BACK ON BIPAP. PHYSICIAN TO SEE PT THIS AM AND LOOK AT EKG PAPERWORK. PT REPORTS PAIN RELIEF.
--- NOTE | 2020-11-17 11:00 | NUR ---
PHYSICIAN REVIEWS EKG NO CONCERNS AT THIS TIME
--- NOTE | 2020-11-17 11:06 | NUR ---
PHYSICIAN AT BEDSIDE TEST DRIVER AT BEDSIDE. DISCUSSION ABOUT CT SCAN REGARDING TREATMENTS. PHYSICIAN TO CONTACT OUTSIDE AGENCIES AND UPDATE. REQUESTING BREATHING TREATMENT AT THIS TIME. RT NOTIFIED.
--- NOTE | 2020-11-17 19:00 | NUR ---
SHIFT SUMMARY PT ALERT AND ORIENTED X 4. HR STABLE. BP STABLE. PT REPORTS CP THIS AM. SEE NOTES. CP RESOLVED. PT BELIEVES PAIN MAY BE D/T MUSCLE PAIN. REGIONAL PRODUCTION MANAGER TO SEE PT. SEE NOTES. PT ON NC AT 2 L T/O SHIFT OXYGEN SATURATION MAINTAINED ABOVE 92%. PT REPORTS PAIN IN BACK THAT IS CHRONIC. PROVIDED WITH MEDICATION PER EMAR. PT REPORTS MILD RELIEF. WILL CONTINUE TO MONITOR UNTIL REPORT GIVEN TO NIGHTSHIFT RN.
--- NOTE | 2020-11-18 04:21 | NUR ---
FIELD SECRETARY SUMMARY THE PT HAS REMAINED AXO X4 W NO CHANGES IN MENTATION, O2 SATS >92% ON 2L VIA NC. PT HAS HAD C/O PAIN IN R ELBOW AND BACK REQUIRING PAIN MEDICATION Q2H. PT CONTINUES TO PRODUCE FREQUENT SMALL AMOUNTS OF URINE BUT NO BM THIS SHIFT, BOWEL CARE GIVEN. PT SLEEPING ON AND OFF THROUGHOUT THE SHIFT. VSS, WCTM.
--- NOTE | 2020-11-18 17:48 | NUR ---
SUMMARY/TRANSFER PT TRANSFERRED UP TO ROOM 362, REPORT CALLED TO ALICIA OWEN, PT HAS BEEN PLEASANT AND COOPERATIVE T/O THE DAY, WORKED WITH PT/OT, HAS BEEN UP TO THE CHAIR AND UP TO THE BATHROOM WITH THE WALKER AND STANDBY ASSIST, PT MED PER EMAR FOR PAIN, REMAINS SOB WITH ANY ACTIVITY, VSS, WILL CONT TO MONITOR
--- NOTE | 2020-11-18 18:39 | NUR ---
SHIFT SUMMARY MAG ARRIVED FROM PCU TO MEDICAL FLOOR AROUND 530PM. PAINFUL, GOT 1 DOSE IV FENTANYL WHICH HELPED. SLIGHTLY WHEEZY LUNGS, ON 2L OXYGEN. RESTING IN BED, CALL LIGHT IN REACH, WCTM
[2020-11-19 04:39] LABS: BASOPHILS ABSOLUTE AUTO 0.01 K/mm3 (0.00-0.23); BASOPHILS PERCENT AUTO 0 % (0-2); EOSINOPHILS PERCENT AUTO 0 % (0-6); Hemoglobin 10.5 g/dL (13.5-17.5); IMMATURE GRAN ABSOLUTE AUTO 0.08 K/mm3 (0.00-0.10); IMMATURE GRAN PERCENT AUTO 1 % (0-1); LYMPHOCYTES ABSOLUTE AUTO 0.64 K/mm3 (0.84-5.20); LYMPHOCYTES PERCENT AUTO 5 % (21-46); MONOCYTES ABSOLUTE AUTO 0.69 K/mm3 (0.16-1.47); MONOCYTES PERCENT AUTO 6 % (4-13); Mean Corpuscular HGB 26.5 pg (26.0-34.0); Mean Corpuscular HGB Conc 31.8 g/dL (31.5-36.5); Mean Corpuscular Volume 83 fL (80-100); Mean Platelet Volume 9.8 fL (9.1-12.4); NEUTROPHILS ABSOLUTE AUTO 11.19 K/mm3 (1.96-9.15); NEUTROPHILS PERCENT AUTO 89 % (41-73); Platelet Count 248 K/mm3 (150-400); RDW Coefficient Variation 14.8 % (11.7-14.2); RDW Standard Deviation 44.6 fL (35.1-46.3); Red Blood Cell Count 3.96 M/mm3 (4.30-5.90); White Blood Cell Count 12.61 K/mm3 (4.00-11.30)
--- NOTE | 2020-11-19 04:45 | NUR ---
SHIFT SUMMARY- PT. A&OX4, PLEASANT, AND COOPEATIVE WITH CARE. ON 2L NC AND CONT BIOX IN PLACE. SATS AND VSS. PT. C/O CHRONIC BACK PAIN DURING THE NIGHT, MEDICATED PER EMAR WITH GOOD EFFECT. ASLEEP MOST OF THE NIGHT USES URINAL INDEPENDENTLY AT THE BEDSIDE. NO APPARENT DISTRESS NOTED. CALL LIGHT WITHIN REACH AND SIDE RAILS UPX2. WILL CONT TO MONITOR.
[2020-11-19 04:57] LABS: Anion Gap 4 mmol/L (6-16); Blood Urea Nitrogen 34 mg/dL (8-24); Bun/Creatinine Ratio 37.4 (12.0-20.0); CO2, Blood 29 mmol/L (21-32); Calcium, Blood 8.9 mg/dL (8.5-10.1); Chloride, Blood 106 mmol/L (98-108); Creatinine, Blood 0.91 mg/dL (0.60-1.20); Glomerular Filtration Rate >60 (60-); Glucose, Blood 143 mg/dL (70-99); Potassium, Blood 4.4 mmol/L (3.5-5.5); Sodium, Blood 139 mmol/L (136-145)
--- NOTE | 2020-11-19 17:35 | NUR ---
SUMMARY PT SITTING UP IN BED, HAS BEEN PLEASANT AND COOPERATIVE WITH CARE T/O THE DAY, MED PER EMAR FOR PAIN, UP IN THE CHAIR AT THE BEDSIDE TODAY, PT HAS WORKED WITH PT/OT, REMAINS SOB WITH ANY ACTIVITY, PLAN TO DC TO SNF SOON, VSS, WILL CONT TO MONITOR
--- NOTE | 2020-11-20 04:35 | NUR ---
SUMMARY PT HAD NO NEW ISSUES NOTED. PT DENIES SOB OR CX PAIN. PT CONTINUES TO HAVE ONGOING BACK DISCOMFORT. PT HAS SLEPT WELL T/O SHIFT. PT REMAINS ON ROOM AIR, SPO2>90%. PT CURRENTLY SLEEPING AND IN NO DISTRESS. CALL LIGHT IN REACH.
--- NOTE | 2020-11-20 16:55 | NUR ---
PATIENT IS ALERT AND ORIENTED AND COOPERATIVE WITH CARE. PATIENT C/OI ABDOMINAL PAIN TODAY, DR. ABAD NOTIFIED. HOME OXYGEN EVALUATION WAS COMPLETED TODAY. NO HOME OXYGEN NEEDED, RT SUGGESTS THAT THE PATIENT USE A BIPAP AT HOME. PATIENT C/O BACK PAIN, TREATED PER EMAR. PLAN IS TO DISCHARGE HOME TOMORROW AFTER LAST DOSE OF IV STEROIDS WITH HOME HEALTH. WILL CONTINUE TO MONITOR
--- NOTE | 2020-11-21 18:19 | NUR ---
PATIENT IS ALERT AND ORIENTED AND COOPERATIVE WITH CARE. C/O BACK PAIN, MEDICATED PER EMAR. BERE IS SUPPOSED TO SEE THE PATIENT REGARDING A TRILOGY. PATIENT C/O ABDOMINAL PAIN, ABDOMINAL ULTRASOUND COMPLETED. WILL CONTINUE TO MONITOR
--- NOTE | 2020-11-22 05:08 | NUR ---
WIRELESS FIELD TECHNICIAN SUMMARY PT A/O X4. SLEPT WELL TONIGHT. MEDICATED FOR CHRONIC BACK PAIN OVERNIGHT. AMBULATED WITH 1 ASSIST AND FWW TO BATHROOM. PLEASANT AND COOPERATIVE. PT REFUSED TO WEAR BIPAP OVERNIGHT, RM AIR OTHERWISE. DENIES SOB SATTING IN THE HIGH 90'S. DENIES CHEST PAIN/PRESSURE. VSS. CALL LIGHT WITHIN REACH.
--- NOTE | 2020-11-22 14:07 | NUR ---
PT TO DISCHARGE HOME WITH HH. IV REMOVED, NO SS OF INFECTION NOTED. FOLLOW UP APPOINTMENTS MADE PER DOCTOR ORDERS. MEDS FAXED TO PHARMACY OF CHOICE. PT EDCUATED REGARDING NEW MEDS. PT DRESSED SELF AND TAKEN DOWN BY WC. MOTHER DROVE PT PATIENT HOME.
[2020-12-20] MEDS ORDERED: CALCITONIN-SAL3.7 M5 (11:12)
== END 2020-11-22 14:29 | disposition home health service (06) | DRG 189 ==
LOC: ER 14:13 → MEDS 14:14 → PCU 11-16 01:32 → MEDS 11-18 17:37 → ENPENDDIS 11-22 10:58 → MEDS 11-22 14:29
PROVIDERS: Family Medicine; Nurse Practitioner Acute Care; Student in an Organized Health Care Education/Training Program; ADMIT Hospitalist
PROC: 5A09357 Assistance with Respiratory Ventilation, Less than 24 Consecutive Hours, Continuous Positive Airway Pressure (ICD-10-PCS; principal; 2020-11-16)
PROC: 3E02340 Introduction of Influenza Vaccine into Muscle, Percutaneous Approach (ICD-10-PCS; 2020-11-16)
DX: J96.01 Acute respiratory failure with hypoxia (principal); J18.9 Pneumonia, unspecified organism; J44.1 Chronic obstructive pulmonary disease with (acute) exacerbation; Z68.41 Body mass index [BMI] 40.0-44.9, adult; J44.0 Chronic obstructive pulmonary disease with (acute) lower respiratory infection; Z66 Do not resuscitate; Z20.822 Contact with and (suspected) exposure to COVID-19; I11.0 Hypertensive heart disease with heart failure; E78.5 Hyperlipidemia, unspecified; E66.9 Obesity, unspecified; K21.9 Gastro-esophageal reflux disease without esophagitis; I50.9 Heart failure, unspecified; C67.9 Malignant neoplasm of bladder, unspecified; Z23 Encounter for immunization; G47.33 Obstructive sleep apnea (adult) (pediatric); F41.9 Anxiety disorder, unspecified; F43.10 Post-traumatic stress disorder, unspecified; E66.01 Morbid (severe) obesity due to excess calories; M54.5 Low back pain; G89.29 Other chronic pain; Z79.899 Other long term (current) drug therapy; Z79.52 Long term (current) use of systemic steroids; Z98.890 Other specified postprocedural states; Z87.891 Personal history of nicotine dependence
CPT/HCPCS: 0241U; 36415; 71045; 71250; 76700; 80048; 80053; 80069; 82803; 83880; 84145; 84484; 85025; 93005; 93010; 93971; 94640; 94644; 94660; 94761; 94762; 96365; 96372-59; 96375; 96376; 97110; 97116; 97161; 97165; 97530; 97535; 99285-25; A9270; G0008; G0378; J0696; J1170; J1644; J1940; J2930; J3010; Q2038

== ENCOUNTER 2020-12-12 13:47 | Emergency (ER) | payer OTHER, MEDICARE ==
[~2020-12-12] VITALS: Ht 172.7 cm; Wt 122.5 kg
[2020-12-12 14:14] LABS: BASOPHILS ABSOLUTE AUTO 0.02 K/mm3 (0.00-0.23); BASOPHILS PERCENT AUTO 0 % (0-2); EOSINOPHILS PERCENT AUTO 0 % (0-6); Hematocrit 33.7 % (37.0-53.0); Hemoglobin 10.6 g/dL (13.5-17.5); IMMATURE GRAN ABSOLUTE AUTO 0.19 K/mm3 (0.00-0.10); IMMATURE GRAN PERCENT AUTO 1 % (0-1); LYMPHOCYTES ABSOLUTE AUTO 0.81 K/mm3 (0.84-5.20); LYMPHOCYTES PERCENT AUTO 6 % (21-46); MONOCYTES PERCENT AUTO 5 % (4-13); Mean Corpuscular HGB 26.5 pg (26.0-34.0); Mean Corpuscular HGB Conc 31.5 g/dL (31.5-36.5); Mean Corpuscular Volume 84 fL (80-100); Mean Platelet Volume 9.3 fL (9.1-12.4); NEUTROPHILS ABSOLUTE AUTO 12.48 K/mm3 (1.96-9.15); NEUTROPHILS PERCENT AUTO 88 % (41-73); NRBC ABSOLUTE 0.02 K/mm3 (0.00-0.02); NRBC Auto 0.1 /100 WBC (0.0-0.2); Platelet Count 338 K/mm3 (150-400); RDW Coefficient Variation 15.9 % (11.7-14.2); RDW Standard Deviation 49.4 fL (35.1-46.3)
[2020-12-12 14:15] LABS: Base Excess Venous 5.4 mmol/L; PCO2 Venous 39.1 mmHg (38-42); PO2 Venous 106 mmHg (38-42); pH Blood Venous 7.48 (7.34-7.37)
[2020-12-12 14:26] LABS: Source, Urine Voided
[2020-12-12 14:28] LABS: Appearance, Urine Hazy (Clear); Blood, Urine 1+ (Neg); Color, Urine Amber (P-Yellow); Glucose Qualitative, Urine Neg (Neg); Ketones, Urine 1+ (Neg); Leukocyte Esterase, Urine 2+ (Neg); Nitrite, Urine Pos (Neg); Protein, Urine 2+ (Neg); Specific Gravity, Urine 1.025 (1.003-1.022); Urobilinogen, Urine 2+ (Normal)
[2020-12-12] MEDS ORDERED: Flonase 0.05% N16 GM (14:47)
[2020-12-12] MEDS ORDERED: PRED5 PO (14:47)
[2020-12-12] MEDS ORDERED: NITR.4SL SL (14:47)
[2020-12-12 14:49] LABS: Alanine Aminotransfer (ALT/SGP 23 U/L (12-78); Albumin, Blood 3.1 g/dL (3.4-5.0); Alk Phos 57 U/L (50-136); Anion Gap 7 mmol/L (6-16); Aspartate Aminotrans (AST/SGOT 12 U/L (12-37); Bilirubin, Total 0.3 mg/dL (0.1-1.0); Blood Urea Nitrogen 38 mg/dL (8-24); Bun/Creatinine Ratio 36.2 (12.0-20.0); CO2, Blood 27 mmol/L (21-32); Chloride, Blood 108 mmol/L (98-108); Creatinine, Blood 1.05 mg/dL (0.60-1.20); Globulin, Blood 3.2 g/dL (2.2-4.0); Glomerular Filtration Rate >60 (60-); Glucose, Blood 125 mg/dL (70-99); Potassium, Blood 4.3 mmol/L (3.5-5.5); Sodium, Blood 142 mmol/L (136-145); Thyroid Stimulating Hormone 0.319 uIU/mL (0.360-4.800); Total Protein, Blood 6.3 g/dL (6.4-8.2); Troponin I <0.015 ng/mL (0.000-0.040)
[2020-12-12] MEDS ORDERED: SENN187 PO (14:49)
[2020-12-12] MEDS ORDERED: PANT40 PO (14:49)
[2020-12-12] MEDS ORDERED: DOCU100 PO (14:49)
[2020-12-12] MEDS ORDERED: LIDO700A20 TD (14:49)
[2020-12-12] MEDS ORDERED: Norco 10-325 T1 EACH PO ×2 (14:49→16:28)
[2020-12-12] MEDS ORDERED: ZESTRIL40 M1 PO (14:49)
[2020-12-12] MEDS ORDERED: ASCO500 PO (14:49)
[2020-12-12] MEDS ORDERED: Vitamin D2000 UNIT PO (14:49)
[2020-12-12] MEDS ORDERED: ALBU2.5V5 NEB (14:49)
[2020-12-12] MEDS ORDERED: ALBU90OI INH (14:49)
[2020-12-12] MEDS ORDERED: CYMBALTA20 M1 PO (14:49)
[2020-12-12] MEDS ORDERED: STIOLTO RESPIMAT4 G1 INH (14:50)
[2020-12-12] MEDS ORDERED: Q-Tussin100 MG/5 M PO (14:50)
[2020-12-12] MEDS ORDERED: PREG100 PO (14:50)
[2020-12-12] MEDS ORDERED: ACET325 PO (14:50)
[2020-12-12] MEDS ORDERED: DICLOFENAC SOD100 G1 TOP (14:50)
[2020-12-12] MEDS ORDERED: GUAIFENESIN ER600 MG PO (14:51)
[2020-12-12] MEDS ORDERED: ONDA4ODT MM (14:51)
[2020-12-12 14:54] LABS: Bilirubin, Urine 1+ (Neg)
[2020-12-12 14:56] LABS: Bacteria Many /hpf; Red Blood Cells, Urine 0-2 /hpf (0-2); Squamous Epithelial Cells Many /hpf (Few)
[2020-12-12] MEDS ORDERED: SOMA350 MG PO (16:28)
[2020-12-12] MEDS ORDERED: LASIX40 MG PO (16:38)
== END 2020-12-12 17:00 | disposition home or self-care (01) ==
LOC: ER 13:47
PROVIDERS: Emergency Medicine
DX: J44.1 Chronic obstructive pulmonary disease with (acute) exacerbation (principal); M48.54XA Collapsed vertebra, not elsewhere classified, thoracic region, initial encounter for fracture; I10 Essential (primary) hypertension; E78.5 Hyperlipidemia, unspecified; Z88.8 Allergy status to other drugs, medicaments and biological substances; Z79.899 Other long term (current) drug therapy; Z87.891 Personal history of nicotine dependence
CPT/HCPCS: 71046; 72070; 80053; 81001; 82803; 83880; 84443; 84484; 85025; 87070; 87205; 93005; 93010; 94640; 96365; 96375; 99285-25; A9270; J1940; J2060; J2930; J3475

== ENCOUNTER 2020-12-16 07:19 | Inpatient (IN) | payer OTHER, MEDICARE ==
[~2020-12-16] VITALS: Ht 172.7 cm; Wt 130.2 kg
[~2020-12-16 07:19] MED LIST changes: +ALBU2.5V5 NEB; +ALBU90OI INH; +ASCO500 PO; +CYMBALTA20 M1 PO; +DICLOFENAC SOD100 G1 TOP; +DOCU100 PO; +GUAIFENESIN ER600 MG PO; +LASIX40 MG PO; +LIDO700A20 TD; +NITR.4SL SL; +Norco 10-325 T1 EACH PO; +ONDA4ODT MM; +PANT40 PO; +PREG100 PO; +Q-Tussin100 MG/5 M PO; +SENN187 PO; +SOMA350 MG PO; +STIOLTO RESPIMAT4 G1 INH; +Vitamin D2000 UNIT PO; +ZESTRIL40 M1 PO
[2020-12-16] MEDS ORDERED: BACL20 PO (07:38)
[2020-12-16 07:44] LABS: PCO2 Arterial 44.3 mmHg (35-45); PO2 Arterial 67.4 mmHg (80-100); pH Blood Arterial 7.41 (7.35-7.45)
[2020-12-16 08:05] LABS: BASOPHILS ABSOLUTE AUTO 0.01 K/mm3 (0.00-0.23); BASOPHILS PERCENT AUTO 0 % (0-2); EOSINOPHILS PERCENT AUTO 2 % (0-6); Hemoglobin 11.3 g/dL (13.5-17.5); IMMATURE GRAN ABSOLUTE AUTO 0.08 K/mm3 (0.00-0.10); IMMATURE GRAN PERCENT AUTO 1 % (0-1); LYMPHOCYTES ABSOLUTE AUTO 0.98 K/mm3 (0.84-5.20); LYMPHOCYTES PERCENT AUTO 8 % (21-46); MONOCYTES ABSOLUTE AUTO 1.09 K/mm3 (0.16-1.47); MONOCYTES PERCENT AUTO 9 % (4-13); Mean Corpuscular HGB 26.3 pg (26.0-34.0); Mean Corpuscular HGB Conc 30.5 g/dL (31.5-36.5); Mean Corpuscular Volume 86 fL (80-100); Mean Platelet Volume 9.7 fL (9.1-12.4); NEUTROPHILS ABSOLUTE AUTO 10.51 K/mm3 (1.96-9.15); NEUTROPHILS PERCENT AUTO 82 % (41-73); Platelet Count 327 K/mm3 (150-400); RDW Coefficient Variation 16.1 % (11.7-14.2); RDW Standard Deviation 50.5 fL (35.1-46.3); Red Blood Cell Count 4.29 M/mm3 (4.30-5.90); White Blood Cell Count 12.87 K/mm3 (4.00-11.30)
[2020-12-16 08:26] LABS: Alanine Aminotransfer (ALT/SGP 25 U/L (12-78); Albumin, Blood 3.3 g/dL (3.4-5.0); Albumin/Globulin Ratio 1.1 (0.8-1.8); Alk Phos 63 U/L (50-136); Anion Gap 5 mmol/L (6-16); Aspartate Aminotrans (AST/SGOT 16 U/L (12-37); Bilirubin, Total 0.6 mg/dL (0.1-1.0); Blood Urea Nitrogen 43 mg/dL (8-24); Bun/Creatinine Ratio 34.7 (12.0-20.0); CO2, Blood 30 mmol/L (21-32); Calcium, Blood 8.3 mg/dL (8.5-10.1); Chloride, Blood 105 mmol/L (98-108); Creatinine, Blood 1.24 mg/dL (0.60-1.20); Globulin, Blood 3.1 g/dL (2.2-4.0); Glomerular Filtration Rate >60 (60-); Glucose, Blood 122 mg/dL (70-99); Potassium, Blood 4.1 mmol/L (3.5-5.5); Sodium, Blood 140 mmol/L (136-145); Total Protein, Blood 6.4 g/dL (6.4-8.2); Troponin I <0.015 ng/mL (0.000-0.040)
[2020-12-16] MEDS ORDERED: ASMANEX220 M14 INH (12:45)
[2020-12-16] MEDS ORDERED: PREDNISONE10 MG PO (13:52)
--- NOTE | 2020-12-16 17:40 | NUR ---
PT IS AN ER ADMIT FOR COPD EXACERBATION. PT HAS BEEN A&OX4, RESP EVEN AND UNLABORED, MAINTAINING O2 SATS >95% ON O2 VIA NC AT 2 L/MIN, EXP WHEEZES, SR ON MONITOR, EDEMATOUS BLE. PT REPORTS CHRONIC NECK PROBLEMS/PAIN X20 YEARS, STATES HE SEES A PAIN SPECIALIST IN [place]. PT STATES APPROX 2 WEEKS AGO HE SUFFERED A COMPRESSION FRACTURE IN HIS "RIB AREA" AND HAS BEEN IN MORE PAIN THAN USUAL. PT ALSO NOTED TO HAVE A MOIST, CONGESTED COUGH THAT CAUSES PAIN. PRN MEDICATION IN EMAR, BUT PT HAS BEEN SLEEPING MOST OF THE AFTEROON AND NOT COUGHING. AT THIS TIME PT IS RESTING WITH EYES CLOSED, RESPIRATIONS EVEN AND UNLABORED. WILL CONTINUE TO MONITOR AND TREAT ACCORDINGLY UNTIL CHANGE OF SHIFT.
--- NOTE | 2020-12-16 22:00 | NUR ---
SPOKE WITH DR. ASCENCIO ABOUT PATIENT'S SEVERE MUSCLE CRAMPS. AGREED TO RESTART HOME MUSCLE RELAXER SOMA AND MAG/K THAT HELP PATIENT AT HOME.
[2020-12-17 04:28] LABS: BASOPHILS ABSOLUTE AUTO 0.01 K/mm3 (0.00-0.23); BASOPHILS PERCENT AUTO 0 % (0-2); EOSINOPHILS PERCENT AUTO 0 % (0-6); Hematocrit 33.1 % (37.0-53.0); Hemoglobin 10.3 g/dL (13.5-17.5); IMMATURE GRAN ABSOLUTE AUTO 0.06 K/mm3 (0.00-0.10); IMMATURE GRAN PERCENT AUTO 1 % (0-1); LYMPHOCYTES ABSOLUTE AUTO 0.54 K/mm3 (0.84-5.20); LYMPHOCYTES PERCENT AUTO 5 % (21-46); MONOCYTES ABSOLUTE AUTO 0.49 K/mm3 (0.16-1.47); MONOCYTES PERCENT AUTO 4 % (4-13); Mean Corpuscular HGB 26.5 pg (26.0-34.0); Mean Corpuscular HGB Conc 31.1 g/dL (31.5-36.5); Mean Corpuscular Volume 85 fL (80-100); Mean Platelet Volume 9.6 fL (9.1-12.4); NEUTROPHILS ABSOLUTE AUTO 10.94 K/mm3 (1.96-9.15); NEUTROPHILS PERCENT AUTO 91 % (41-73); Platelet Count 309 K/mm3 (150-400); RDW Coefficient Variation 15.7 % (11.7-14.2); RDW Standard Deviation 49.1 fL (35.1-46.3); Red Blood Cell Count 3.88 M/mm3 (4.30-5.90); White Blood Cell Count 12.04 K/mm3 (4.00-11.30)
[2020-12-17 04:49] LABS: Alanine Aminotransfer (ALT/SGP 23 U/L (12-78); Alk Phos 59 U/L (50-136); Anion Gap 5 mmol/L (6-16); Aspartate Aminotrans (AST/SGOT 12 U/L (12-37); Bilirubin, Total 0.5 mg/dL (0.1-1.0); Blood Urea Nitrogen 46 mg/dL (8-24); Bun/Creatinine Ratio 42.6 (12.0-20.0); CO2, Blood 29 mmol/L (21-32); Chloride, Blood 103 mmol/L (98-108); Creatinine, Blood 1.08 mg/dL (0.60-1.20); Glomerular Filtration Rate >60 (60-); Glucose, Blood 172 mg/dL (70-99); Potassium, Blood 4.7 mmol/L (3.5-5.5); Sodium, Blood 137 mmol/L (136-145)
--- NOTE | 2020-12-17 06:04 | NUR ---
SHIFT SUMMARY PATIENT PLEASANT MAN WHO IS A&OX4, FOLLOWING COMMANDS AND JIMENEZ. BASELINE BLE WEAKNESS AND CHRONIC BACK/NECK PAIN NOTED. COMPLAINED OF SEVERE SPASMING R/T DIURESING SO GOT HOME MED SOMA ADDED TO MED LIST PRN FOR THIS. NSR ON THE MONITOR. ON 2L NC WITH NO ACUTE DISTRESS NOTED. WHEEZING AND WEAK COUGH NOTED. TRYING TO LIMIT COUGHING SPELLS PATIENT HAS CURRENT BACK FRACTURE AND IS LIKELY TO WORSEN WITH THIS. REFUSING TURNS IN BED D/T PAIN FROM INJURY.PRN COUGH MEDS Q4 HELPING. GOOD APPETITE. VOIDING WELL PER URINAL. NOT SEEN OOB. NO ACUTE CONCERNS AT THIS TIME. WILL CONTINUE TO MONITOR.
--- NOTE | 2020-12-17 17:33 | NUR ---
SHIFT SUMMARY Patient is an easy going happy man, who is A&Ox4, he listens to commands. He is still having difficilties with baseline BLE and chronic back and neck pain. Which is his main concern, as he is also experiencing muscle spasms dominately in his left forearm. Which have resolved with SOMA and heating pad used at the bedside. He is still having a RR from 16-20 on 2 L of O2 via NC. Patient has a dry nonproductive cough with the very rare and small amount of clear sputum. His lungs sounds have improved, but still are diminished with potential crackles, as PT moved patient and RT gave treatments his breath sounds improved. He tolerated sitting in a chair after PT Evaluation, however does not like to be repositioned, or turned during regular intervals. However, with the changes in his Pain Management here at the facility he is much more receptive to moving. No coughing meds given on this shift, a fentanyl patch was applied earlier at 11:11. Patient has adaquate appetite, voids in the urinal as long as urinal is within reach, no SOB visualized, patients only concerns is pain and being established with his family member being able to provide cargiving once discharged. Will continue to monitor patient.
--- NOTE | 2020-12-18 05:24 | NUR ---
SHIFT SUMMARY PATIENT A PLEASANT GENTLEMAN FOUND TO BE A&OX4, FOLLOWING COMMANDS, AND JIMENEZ. BASELINE BLE WEAKNESS. UP WITH ONE ASSIST AND WALKER. CHRONIC AND NEW PAINFUL BACK FRACTURES NOTED. PAIN CONTROL APPEARS BETTER AFTER FENT PATCH KICKED IN HALF WAY THROUGH SHIFT. SOMA PRN FOR SPASMS AND NORCO FOR BREAKTHROUGH PAIN. NO TELE. VSS. ON 2LNC WITH HAUSER NOTED. EX. WHEEZES AND WEAK COUGH NOTED UPON ASSESSMENT. PRN COUGH MED DOING WELL AT PREVENTING COUGHING FITS. REGULAR DIET. VOIDING WELL PER URINAL. REFUSING TURNS IN BED. NO ACUTE CONCERNS AT THIS TIME. WILL CONTINUE TO MONITOR.
--- NOTE | 2020-12-18 19:41 | NUR ---
SHIFT SUMMARY PT CONTINUES TO HAVE BACK PAIN BUT ONLY WHEN COUGHING. PT STATES THAT THE OXYCODONE HAS BEEN VERY HELPFUL WITH HIS PAIN TODAY; THE FENTYL PATCH IS HELPFUL A LITTLE BUT IS MAKING HIS "HEAD FOGGY." PT WOULD LIKE TO KEEP THE FENTENYL PATCH THE REMAINDER OF THE NIGHT AND SEE IF IT HELPS HIM REST THEN REEVALUATE TOMORROW. PT WORKED WITH OT/PT WELL TODAY AND WAS ABLE TO SIT IN THE CHAIR AND WALK AROUND THE ROOM MULTIPLE TIMES TODAY. PT IS RESTING IN BED AT THIS TIME
[2020-12-19 05:15] LABS: Anion Gap 4 mmol/L (6-16); Blood Urea Nitrogen 39 mg/dL (8-24); Bun/Creatinine Ratio 37.5 (12.0-20.0); CO2, Blood 30 mmol/L (21-32); Calcium, Blood 8.4 mg/dL (8.5-10.1); Chloride, Blood 101 mmol/L (98-108); Creatinine, Blood 1.04 mg/dL (0.60-1.20); Glomerular Filtration Rate >60 (60-); Glucose, Blood 123 mg/dL (70-99); Potassium, Blood 5.4 mmol/L (3.5-5.5); Sodium, Blood 135 mmol/L (136-145)
--- NOTE | 2020-12-19 07:27 | NUR ---
SHIFT SUMMARY PT A&O X4; MAKES NEEDS KNOWN; DENIES CHEST PAIN; VSS; NSR NOTED ON TELE; O2 SATS >93 ON RA; C/O CONSTANT CHRONIC PAIN W/ NO RELIEF; ALTERNATING MEDS TO TRY TO STAY ON TOP OF PAIN; PT STATES "NOTHING IS WORKING"; PT DENIED REPOSITIONING, HEAT PAD, RECLINER, HOT SHOWER, AMBULATION FOR COMFORT; EDUCATION PRINTED OFF FOR PT ON FENTANYL PATCH AND NEED TO BE IN PLACE 12+ HOURS TO RECEIVE BENEFIT; PT ENCOURAGE TO KEEP TRYING PATCH W/ Q4 OXY; COUGH SYRUP AND SOMA ALTERNATED WELL; USES URINAL IN BED; CALLS APPROPRIATELY; SLEPT ON AND OFF IN BETWEEN INTERVENTION; CALL LIGHT IN REACH; BED IN LOWEST POSITION; REPORT GIVEN TO DAY SHIFT RN.
--- NOTE | 2020-12-19 15:21 | NUR ---
Initial Visit Palliative Care Consult for AD/POLST and Advanced Directive. Pt admitted to hospital for COPD Exacerbation. Pt's medical history and comorbidities include: Severe COPD, T7 Compression Fracture, HTN, Hyperlipidemia, GERD, Osteoarthritis, Anxiety, PTSD, Chronic Back Pain with Opiod Dependce, Bladder Cancer, and GREGG. Pt resting in bed upon arrival. Pt reports 8/10 in his back and states due to working with physical therapy. Pt reports hospitalist changed his pain regimen back to Oxycontin for long acting pain relief due to Fentanyl patch not being beneficial. Pt denies anxiety and nausea. Pt does appear mildly dyspneic as evidenced by work of breathing when speaking. Engaged in therapeutic discussion regarding Advanced Care Planning. Pt reports living at home with his mother. Pt's mother is elderly and Pt's sister comes and provides care for mother. Pt is a and this RN thanked him for his service. Pt reports at baseline he uses a can and a walker to assist with ambulation. Pt reports ability to perform his ADLs independently but has found it become more difficult. Pt uses a shower bench when showering due to fatigue and is able to ambulate approximately 25 feet before becoming to SOB needing to rest. Pt reports believing in God but does not practice any pariticular gnosticism and does not attend nondenominational. Discussed recommendations made by PT and OT with Pt denying need. Pt states he will have his cousin assist with physical therapy needs. Educated on consequences and risks of non compliance. Engaged in discussion regarding his COPD. Pt states "I think I'm at end stage with my COPD". Listened as Pt discusses different MD options regarding his COPD and possible bacterium. Continue therapeutic listening. Gentle education given on disease process including trajectory of disease. Educated on the importance or developing multiple plans with PCP and special needs bus driver as disease progresses. Discussed considering pulmonary rehab with Pt reporting doing pulmonary rehab in the past with no benfit. Continued therapeutic listening and answered questions. Discussed considering completing POLST with Pt in agreement. Educated on life sustaining measures including risk factors and implications of CPR. Assisted Pt in completing POLST. Pt's wishes are DNR and Limited Interventions. Pt expresses appreciation of visit and reports no other concerns at this time. Spoke with Bedside LEXIE Kebede prior to Pt visit and discussed case. Palliative Care will obtain copy of POLST for medical records upon MD signature.
--- NOTE | 2020-12-19 18:38 | NUR ---
SHIFT SUMMARY PT WORKED WITH PHYSICAL AND OCCUPATIONAL THERAPY TODAY. PT CONTINUES TO HAVE BACK PAIN BUT HAS HAD MORE RELIEF WITH THE CURRENT MEDS ON THE EMAR BEING USED PRN. VS HAVE REMAINED STABLE, PT NOW ON 1L O2 SATURATION WAS SITTING AT 97% AND ABOVE ON 2L. PT WILL MOST LIKELY DISCHARGE HOME TOMORROW.
--- NOTE | 2020-12-20 06:28 | NUR ---
SHIFT SUMMARY PT A&O X 4; MAKES NEEDS KNOWN; VSS; NSR NOTED ON TELE; O2 SATS >93 ON 1L NC; C/O CHRONIC BACK PAIN, STATES IMPROVED W/ OXYCONTIN BID, W/ BREAKTHROUGH OXYCODONE; PT REFUSED REPOSITIONING AND CONTINUED TO REFUSE EVEN AFTER EDUCATION; USES URINAL IN BED; CALL LIGHT IN REACH; BED IN LOWEST POSITION; WILL CONTINUE TO MONITOR CLOSELY UNITL HAND OFF TO DAY SHIFT RN.
[2020-12-20] MEDS ORDERED: ACET500 PO (11:11)
[2020-12-20] MEDS ORDERED: CALCITONIN-SAL3.7 M5 NS (11:12)
[2020-12-20] MEDS ORDERED: FURO40 PO (11:13)
[2020-12-20] MEDS ORDERED: GUAI600T33 PO (11:14)
[2020-12-20] MEDS ORDERED: LISI20 PO (11:15)
[2020-12-20] MEDS ORDERED: MAGNESIUM OXID400 M1 PO (11:16)
[2020-12-20] MEDS ORDERED: ICY HOT TOP (11:19)
[2020-12-20] MEDS ORDERED: MICONAZOLE NIT130 GM TOP (11:21)
[2020-12-20] MEDS ORDERED: OXYC10ER PO (11:22)
[2020-12-20] MEDS ORDERED: ROXICODONE5 MG PO (11:24)
[2020-12-20] MEDS ORDERED: MIRALAX17 GM PO (11:25)
--- NOTE | 2020-12-20 11:48 | NUR ---
PT ALERT AND ORIENTED X4. ON 1 L O2 THIS AM THAT HAS SINCE BEEN TITRATED OFF. SATING AT 93-94% ON ROOM AIR. NO TELE, DENIES CHEST PAIN. COMPLAINS OF CHRONIC BACK PAIN THAT RADIATES TO RIGHT SIDE/RIBS. MEDICATED PER EMAR FOR PAIN. PT HAVING TROUBLE DEEP BREATHING AND COUGHING DUE TO BACK PAIN. SITTING AT SIDE OF BED THIS AM. STATES PAIN IS MANAGABLE IS HE DOESNT MOVE OR COUGH. REPOSITINING OFFERED. VITAL SIGNS STABLE. RIGHT ARM ABRASION AND RIGHT ABDOMINAL FOLD ULCERATION, CLEANED AND POWDER APPLIED. USING URINAL IN BED. HOME O2 EVAL DONE. WILL CONTINUE TO MONITOR. CALL LIGHT IN REACH.
--- NOTE | 2020-12-20 14:30 | NUR ---
DISCHARGE: NO ACUTE CHANGES, SEE PREVIOUS NOTE. VITAL SIGNS REMAIN STABLE. Q2 TURNING ENCOURAGED. PAIN MANAGEMENT WITH REPOSITIONING AND MEDICATED [facility] EMAR. PT DISCHARGE WNL. IV REMOVED PER PROTOCOL. DISCHARGE INSTRUCTIONS REVIEWED, QUESTIONS ANSWERED. PATIENT LEFT VIA WHEELCHAIR WITH [facility].
== END 2020-12-20 14:55 | disposition home health service (06) | DRG 543 ==
LOC: ER 07:19 → PCU 07:20
PROVIDERS: Emergency Medicine; Nurse Practitioner Acute Care; ADMIT Internal Medicine
DX: M80.88XA Other osteoporosis with current pathological fracture, vertebra(e), initial encounter for fracture (principal); Z68.41 Body mass index [BMI] 40.0-44.9, adult; F11.20 Opioid dependence, uncomplicated; T38.0X5A Adverse effect of glucocorticoids and synthetic analogues, initial encounter; J43.9 Emphysema, unspecified; E66.01 Morbid (severe) obesity due to excess calories; I10 Essential (primary) hypertension; G47.33 Obstructive sleep apnea (adult) (pediatric); E78.5 Hyperlipidemia, unspecified; K21.9 Gastro-esophageal reflux disease without esophagitis; M19.90 Unspecified osteoarthritis, unspecified site; F41.9 Anxiety disorder, unspecified; F43.10 Post-traumatic stress disorder, unspecified; F32.9 Major depressive disorder, single episode, unspecified; G89.29 Other chronic pain; Z66 Do not resuscitate; Z85.51 Personal history of malignant neoplasm of bladder; Z87.891 Personal history of nicotine dependence; Z79.899 Other long term (current) drug therapy; Z79.1 Long term (current) use of non-steroidal anti-inflammatories (NSAID); Z88.8 Allergy status to other drugs, medicaments and biological substances
CPT/HCPCS: 36415; 36600; 71045; 80048; 80053; 82306; 82803; 83880; 84484; 85025; 93005; 93010; 94640; 94660; 94667; 94760; 94761; 94762; 96374; 96375; 97110; 97116; 97162; 97165; 97530; 97535; 99285-25; A9270; A9270-GY; G0378; J1170; J1885; J1940; J2405; J2930; J7512

== ENCOUNTER 2021-01-08 16:54 | Inpatient (IN) | payer OTHER, MEDICARE ==
[~2021-01-08] VITALS: Ht 172.7 cm; Wt 120.9 kg
[~2021-01-08 16:54] MED LIST changes: +ACET500 PO; +ASMANEX220 M14 INH; +BACL20 PO; +CALCITONIN-SAL3.7 M5; +FURO40 PO; +GUAI600T33 PO; +ICY HOT TOP; +LISI20 PO; +MAGNESIUM OXID400 M1 PO; +MICONAZOLE NIT130 GM TOP; +MIRALAX17 GM PO; +OXYC10ER PO; +PREDNISONE10 MG PO; +ROXICODONE5 MG PO
[2021-01-08 17:35] LABS: Calcium, Ionized (POC) 1.05 mmol/L (1.10-1.46); Chloride (POC) 97 mmol/L (98-108); Creatinine (POC) 3.2 mg/dL (0.8-1.3); Glucose (ISTAT POC) 146 mg/dL (70-99); Hemoglobin (POC) 10.5 g/dL (13.5-17.5); Potassium (POC) 5.8 mmol/L (3.5-5.5); Sodium (POC) 133 mmol/L (135-148); Total CO2 (POC) 30 mmol/L (21-32)
[2021-01-08 17:38] LABS: PCO2 Arterial 39.7 mmHg (35-45); PO2 Arterial 235 mmHg (80-100); pH Blood Arterial 7.47 (7.35-7.45)
[2021-01-08 17:46] LABS: BASOPHILS ABSOLUTE AUTO 0.05 K/mm3 (0.00-0.23); BASOPHILS PERCENT AUTO 0 % (0-2); EOSINOPHILS ABSOLUTE AUTO 0.17 K/mm3 (0.00-0.68); EOSINOPHILS PERCENT AUTO 2 % (0-6); Hematocrit 33.6 % (37.0-53.0); Hemoglobin 10.7 g/dL (13.5-17.5); IMMATURE GRAN ABSOLUTE AUTO 0.06 K/mm3 (0.00-0.10); IMMATURE GRAN PERCENT AUTO 1 % (0-1); LYMPHOCYTES ABSOLUTE AUTO 0.82 K/mm3 (0.84-5.20); LYMPHOCYTES PERCENT AUTO 7 % (21-46); MONOCYTES ABSOLUTE AUTO 0.91 K/mm3 (0.16-1.47); MONOCYTES PERCENT AUTO 8 % (4-13); Mean Corpuscular HGB 27.8 pg (26.0-34.0); Mean Corpuscular HGB Conc 31.8 g/dL (31.5-36.5); Mean Corpuscular Volume 87 fL (80-100); Mean Platelet Volume 10.4 fL (9.1-12.4); NEUTROPHILS ABSOLUTE AUTO 9.64 K/mm3 (1.96-9.15); NEUTROPHILS PERCENT AUTO 83 % (41-73); Platelet Count 311 K/mm3 (150-400); RDW Coefficient Variation 17.8 % (11.7-14.2); Red Blood Cell Count 3.85 M/mm3 (4.30-5.90); White Blood Cell Count 11.65 K/mm3 (4.00-11.30)
[2021-01-08 18:00] LABS: Magnesium, Blood 2.4 mg/dL (1.6-2.4); Troponin I <0.015 ng/mL (0.000-0.040)
[2021-01-08 18:07] LABS: Alanine Aminotransfer (ALT/SGP 44 U/L (12-78); Albumin, Blood 3.5 g/dL (3.4-5.0); Albumin/Globulin Ratio 1.1 (0.8-1.8); Alk Phos 62 U/L (50-136); Anion Gap 6 mmol/L (6-16); Aspartate Aminotrans (AST/SGOT 29 U/L (12-37); Bilirubin, Total 0.7 mg/dL (0.1-1.0); Blood Urea Nitrogen 86 mg/dL (8-24); Bun/Creatinine Ratio 29.4 (12.0-20.0); CO2, Blood 28 mmol/L (21-32); Calcium, Blood 8.2 mg/dL (8.5-10.1); Chloride, Blood 101 mmol/L (98-108); Creatinine, Blood 2.93 mg/dL (0.60-1.20); Globulin, Blood 3.3 g/dL (2.2-4.0); Glomerular Filtration Rate 23 (60-); Glucose, Blood 146 mg/dL (70-99); Sodium, Blood 135 mmol/L (136-145); Total Protein, Blood 6.8 g/dL (6.4-8.2)
[2021-01-08] MEDS ORDERED: MORP15ER PO (20:57)
[2021-01-08] MEDS ORDERED: HYDACE10B PO (21:54)
[2021-01-09 00:15] LABS: Albumin, Blood 3.3 g/dL (3.4-5.0); Anion Gap 9 mmol/L (6-16); Blood Urea Nitrogen 84 mg/dL (8-24); Bun/Creatinine Ratio 33.1 (12.0-20.0); CO2, Blood 26 mmol/L (21-32); Calcium, Blood 8.1 mg/dL (8.5-10.1); Chloride, Blood 103 mmol/L (98-108); Creatinine, Blood 2.54 mg/dL (0.60-1.20); Glomerular Filtration Rate 27 (60-); Glucose, Blood 109 mg/dL (70-99); Phosphorus, Blood 4.5 mg/dL (2.5-4.9); Potassium, Blood 4.9 mmol/L (3.5-5.5); Sodium, Blood 138 mmol/L (136-145); Troponin I <0.015 ng/mL (0.000-0.040)
--- NOTE | 2021-01-09 01:52 | NUR ---
ASSUMPTION OF CARE PT TX TO ICU 16 FROM ER, MOVED TO BED VIA SLIDER SHEET. PT UNABLE TO WALK AT BASELINE DUE TO RECENT BACK INJURY. PT A&OX4. C/O SEVERE PAIN IN HIS RIBS AND BACK, TREATED c PRN FENTANYL AND TYLENOL WITH MINIMAL RELIEF. PT BECOMES TACHYPNEIC & SOB WITH MOVEMENT, PLACED ON NON-REBREATHER FOR A SHORT TIME UNTIL PT CALM, NOW ON ROOM AIR. PT CONTINUES TO BE HYPOTENSIVE, INITIALLY ON 8MCG OF LEVOPHED, TITRATED UP TO 12MCG CURRENTLY c MAP >65. DR MICHAELS AT BEDSIDE SHORTLY AFTER ADMIT, ORDERS PLACED FOR BUMEX, MED HELD DUE TO CONTINUOUS LOW BP. PT USING URINAL IN BED. CALL LIGHT IN REACH, WILL CONTINUE TO MONITOR CLOSELY.
--- NOTE | 2021-01-09 04:41 | NUR ---
UPDATE WHILE REVIEWING CASE, NOTICED NO COVID TEST WAS PERFORMED WITH PT C/O SOB UPON ARRIVAL. SPOKE WITH HOSPITALIST, DR ALCANTAR REGARDING POTENTIAL COVID SWAB. CHEST X-RAY REVIEWED BY , NO COVID SWAB TO BE PERFORMED AT THIS TIME.
[2021-01-09 05:30] LABS: BASOPHILS ABSOLUTE AUTO 0.01 K/mm3 (0.00-0.23); BASOPHILS PERCENT AUTO 0 % (0-2); EOSINOPHILS ABSOLUTE AUTO 0.01 K/mm3 (0.00-0.68); EOSINOPHILS PERCENT AUTO 0 % (0-6); Hematocrit 30.8 % (37.0-53.0); Hemoglobin 9.8 g/dL (13.5-17.5); IMMATURE GRAN ABSOLUTE AUTO 0.06 K/mm3 (0.00-0.10); IMMATURE GRAN PERCENT AUTO 1 % (0-1); LYMPHOCYTES ABSOLUTE AUTO 0.33 K/mm3 (0.84-5.20); LYMPHOCYTES PERCENT AUTO 4 % (21-46); MONOCYTES ABSOLUTE AUTO 0.11 K/mm3 (0.16-1.47); MONOCYTES PERCENT AUTO 1 % (4-13); Mean Corpuscular HGB 27.5 pg (26.0-34.0); Mean Corpuscular HGB Conc 31.8 g/dL (31.5-36.5); Mean Corpuscular Volume 87 fL (80-100); Mean Platelet Volume 9.9 fL (9.1-12.4); NEUTROPHILS ABSOLUTE AUTO 8.38 K/mm3 (1.96-9.15); NEUTROPHILS PERCENT AUTO 94 % (41-73); Platelet Count 295 K/mm3 (150-400); RDW Coefficient Variation 17.2 % (11.7-14.2); RDW Standard Deviation 55.1 fL (35.1-46.3); Red Blood Cell Count 3.56 M/mm3 (4.30-5.90)
[2021-01-09 05:58] LABS: Albumin, Blood 3.2 g/dL (3.4-5.0); Anion Gap 7 mmol/L (6-16); Blood Urea Nitrogen 76 mg/dL (8-24); Bun/Creatinine Ratio 37.8 (12.0-20.0); CO2, Blood 26 mmol/L (21-32); Calcium, Blood 8.1 mg/dL (8.5-10.1); Chloride, Blood 103 mmol/L (98-108); Creatinine, Blood 2.01 mg/dL (0.60-1.20); Glomerular Filtration Rate 35 (60-); Glucose, Blood 176 mg/dL (70-99); Magnesium, Blood 2.5 mg/dL (1.6-2.4); Potassium, Blood 5.1 mmol/L (3.5-5.5); Sodium, Blood 136 mmol/L (136-145); Troponin I <0.015 ng/mL (0.000-0.040)
--- NOTE | 2021-01-09 06:19 | NUR ---
SHIFT SUMMARY PT REMAINS A&OX4, FOLLOWING COMMANDS. ABLE TO SLEEP T/O THE NIGHT. ONCE PT WAS SETTLED AND COMFORTABLE IN BED HIS BREATHING SEEMS TO BE MUCH BETTER, POSSIBLY SOME ANXIETY RELATED SOB. CONTINUES TO C/O BACK PAIN WHEN THIS NURSE IS IN THE ROOM BUT FALLS BACK ASLEEP BEFORE MEDS ARE GIVEN. LEVOPHED TITRATED DOWN TO 6MCG c MAP >65. PT CONTINUES TO USE URINAL IN BED WITH NO ISSUES. WILL CONTINUE TO MONITOR.
--- NOTE | 2021-01-09 09:00 | NUR ---
PT IS RESTING AT THIS TIME. REPORTS DYSPNEA ON EXERTION. ON O2 AT 2L NC, SATS>92%. LUNG SOUNDS ARE TIGHT C EXPIRATORY WHEEZE IN UPPERS, DIM IN BASES. LEVOPHED AT 6MCG/MIN, SATS MAINTAINING C MAP >65. PT ALSO TAKING PO MIDODRINE. ECHO DONE THIS AM AND VENOUS DOPPLER ORDERED, ECHO RESULTS PENDING. PT REPORTS CHRONIC BACK PAIN AND NUMBNESS & TINGLING IN BLE, L>R. FENTANYL IS NOT COVERING PAIN. WILL REQUEST DIFFERENT REGIMEN PT IS OPIOID DEPENDENT. PT HAS 3+ EDEMA BLE, PEDAL PULSES ASSESSED C DOPPLER. PT USES URINAL AND BEDSIDE COMMODE. PT HAS PRESSURE ULCER UNDER ABDOMINAL SKIN FOLD, HE REPORTS HE USES PAPER TOWELS AT HOME, WAS GIVEN TOWELS TO PLACE UNDER FOLD. PT CURRENTLY EATING BREAKFAST AND IN NO APPARENT DISTRESS. WILL CONTINUE TO MONITOR.
--- NOTE | 2021-01-09 10:15 | NUR ---
WHILE USING THE COMMODE, RIGHT IV WAS INADVERTENTLY REMOVED. LEVOPHED WAS PLACED ON STAND BY. WILL CONTINUE TO MONITOR PRESSURES/MAP AND RESTART LEVOPHED NECESSARY.
--- NOTE | 2021-01-09 18:51 | NUR ---
AT 1800 PT CALLED RN TO REPORT TINGLING IN L ARM. STOPPED LEVOPHED THAT WAS RUNNING IN LFA IV. WHEN FLUSHING PT STATES IT STINGS. DR. TERRELL IN THE UNIT NOTIFIED. NEW ORDERS FOR INCREASE IN MIDODRINE AND SOLU-MEDROL. ALSO GOT ORDERS TO GIVE REGITINE AT SITE. INFILTRATION WAS CAUGHT QUICKLY. SITE IS NOT SWOLLEN OR RED. AWAITING REGITINE FROM PHARMACY. BP IS STABLE AT THE MOMENT OFF LEVOPHED.
--- NOTE | 2021-01-09 18:59 | NUR ---
PT IS A&O X4. CONTINUES WITH DYSPNEA C EXERTION. PT IS ABLE TO MOVE INDEPENDENTLY IN BED, USES CALL LIGHT APPROPRIATELY. HAS HX OF ANXIETY AND PTSD, HAS INCREASED ANXIETY WITH SOB. HAS BEEN USING O2 2L NC OFF AND ON THROUGHOUT THE DAY. SATS >92%. LUNGS WERE TIGHT WITH WHEEZES IN BILAT UPPER LOBES, DIMINISHED IN BASES. AFTER BUMEX, LUNG SOUNDS WERE COARSE TO CLEAR IN UPPERS, DIM IN BASES. HR HAS REMAINED WNL, PRESSURES HAVE VARIED. LEVOPHED RESTARTED AT 2MCG/MIN, AND TITRATED TO 4MCG/MIN UNTIL PRESSURES STABLE. IV SITE MONITORED FREQUENTLY FOR INFILTRATION. PT TAKING PO MIDODRINE, AND HAS OCCASIONAL BREAKTHROUGH LOW PRESSURE/MAP. AROUND 1800, LEVOPHED IV INFILTRATED, DR. TERRELL WAS NOTIFIED AND MIDODRINE WAS INCREASED BY 2.5MG TO A TOTAL OF 10MG TID. PRESSURES REMAINING STABLE. PT HAS CHRONIC BACK AND LEFT SIDED RIB PAIN, MEDICATING WITH Q8 OXYCONTIN, PRN OXYCODONE. PT USING BEDSIDE COMMODE. TRIED USING TOILET AND CAUSED DYSPNEA, NOW WANTS TO USE COMMODE. USING URINAL. CURRENTLY HAS 20G PERIPH. IV L. HAND, AND 20G PERIPH. IV L FOREARM. PT REPORTS ULCERATION UNDER ABDOMINAL SKIN FOLD AND USING DRY TOWELS. PT CURRENTLY RESTING AND IN NO APPARENT DISTRESS.
--- NOTE | 2021-01-09 21:24 | NUR ---
ASSUME CARE PT IS ALERT AND ORIENTED, COOPERATIVE WITH CARE. VITALS STABLE, BP HYPOTENSIVE >100 SYSTOLIC. HR 70-80'S. O2 SATS >90% ON ROOM AIR, PT ON 2LPM PRN FOR SOB. PEDAL PULSES FOUND WITH DOPLER. L FOREARM SHOWED REDNESS AND BRUSING AT IV SITE, IV PULLED, PHENTOLAMINE GIVEN AT SITE. REDNESS AND PAIN DECREASING. PT REPORTS NO MORE PAIN AT SITE.
[2021-01-10 03:44] LABS: Hematocrit 28.7 % (37.0-53.0)
[2021-01-10 04:12] LABS: Anion Gap 6 mmol/L (6-16); Blood Urea Nitrogen 80 mg/dL (8-24); Bun/Creatinine Ratio 40.2 (12.0-20.0); CO2, Blood 28 mmol/L (21-32); Calcium, Blood 8.1 mg/dL (8.5-10.1); Chloride, Blood 100 mmol/L (98-108); Creatinine, Blood 1.99 mg/dL (0.60-1.20); Glomerular Filtration Rate 35 (60-); Glucose, Blood 151 mg/dL (70-99); Magnesium, Blood 2.2 mg/dL (1.6-2.4); Phosphorus, Blood 3.4 mg/dL (2.5-4.9); Potassium, Blood 4.7 mmol/L (3.5-5.5); Sodium, Blood 134 mmol/L (136-145)
--- NOTE | 2021-01-10 05:59 | NUR ---
SHIFT SUMMARY PT HAD MINIMAL CHANGE T/O THE NIGHT. BP AVG 120'S SYSTOLIC WIT A RANGE OF 100-159 SYSTOLIC. PT DID NOT HAVE ANY MEDICATIONS OR FLUIDS INFUSING. L FOREARM IV SITE SHOWED DECREASED EDEMA AND REDNESS, PT STATED NO PAIN AT SITE T/O THE NIGHT. HR AVG 70-80'S, MONITOR SHOWED PEAKED T WAVES WITH PAC'S, PT HAD ONE 4 BEAT RUN OF VTACH AT 0407. AROUND 0045 PT STATED HAVING NAUSEA, PRN ZOFRAN GIVEN WITH SOME RELIEF. PT NAUSEOUS AGAIN THIS AM AROUND 0500 WITH PROJECTILE VOMITING. EMESIS WAS BLACK AND COFFEE GROUND IN APPEARANCE, HAD ABOUT 375ML OUT. PT WAS ON ROOM AIR WITH O2 SATS >90%, PUT ON 2LPM VIA NC WHEN SLEEPING DUE TO SATS DROPPING TO HIGH 80'S. PT STATED SOB WITH EXERTION WAS IMPROVING. PT ABLE TO VOID IN URINAL, HAD MINIMAL OUTPUT T/O THE NIGHT <700ML. PT STATED HIS PAIN WAS BECOMING WELL CONTROLLED WITH THE PRN MEDICATIONS. PAIN INCREASED WITH MOVEMENT. PT ALERT, ORIENTED, AND COOPERATIVE WITH CARE.
--- NOTE | 2021-01-10 08:30 | NUR ---
ASSUMED CARE OF PT PT ALERT AND ORIENTEDx4. NOC SHIFT REPORTED PT TO HAVE COFFEE GROUND EMESIS EARLY THIS MORNING. UPON INITIAL ASSESSMENT, PT AGAIN HAD COFFEE GROUND EMESIS. PT MADE NPO UNTIL DR MADISON SCHULTZ. PT CONFIRMED HX OF RECENT FREQUENT IBUPROPHEN USE FOR BACK PAIN. PRN ZOFRAN GIVEN WITH IMPROVEMENT. PT C/O INDIGESTION. 24 HOUR URINE IN PROGRESS, PT ABLE TO USE URINAL. PT ON 2L OF O2 VIA NC SPO2 UNABLE TO MAINTAIN > 92% WHEN ASLEEP. MONITOR SHOWS PT TO BE IN SINUS RHYTHM WITH FREQUENT PAC'S. BP CURRENTLY STABLE, PT RECEIVING MIDORINE PER ORDERS.
--- NOTE | 2021-01-10 12:00 | NUR ---
REASSESSMENT NO FURTHER EMESIS, SINCE THIS MORNING. URINE OUTPUT ADEQUATE, 24HR URINE REMAINS IN PROGRESS. POWERGLIDE PLACED PT ONLY HAD 1 IV TO HAND. BP REMAINS STABLE. SINUS RHTYHM WITH PAC'S ON THE MONITOR. REMAINS ON 2L OF O2. PLANNED FOR EGD THIS AFTERNOON. PT NPO.
[2021-01-10 12:01] LABS: SARS-Cov-2 (COVID-19) PCR, MMC NEGATIVE (NEGATIVE)
--- NOTE | 2021-01-10 15:07 | NUR ---
01/10/21 1507 Miguelito Leon See Anesthesia record DR PHILIP DONE IN ICU 16
--- NOTE | 2021-01-10 16:00 | NUR ---
REASSESSMENT PT RESPONSIVE TO VOICE, VERY SLEEPY POST SEDATION FOR EGD. PT DID HAVE HYPOTENSION DURING PROCEDURE, BP'S REMAIN INTERMITTANTLY SOFT POST PROCEDURE. SINUS RHYTHM WITH PAC'S ON THE MONITOR. REMAINS ON 2L VIA NC.
--- NOTE | 2021-01-10 18:23 | NUR ---
SHIFT SUMMARY PT SLEEPY, AWAKENS EASILY. S/P PROCEDURAL SEDATION FOR EGD. BP'S WERE STABLE TODAY EXCEPT DURING PROCEDURAL SEDATION. BP'S HAVE SINCE IMPROVED AGAIN. PT TOLERATING FULL LIQUID DINNER, NO N/V. PT REMAINS ON 2L OF O2, SINCE RECOVERING FROM PROCEDURAL SEDATION. 24HR URINE REMAINS IN PROGRESS, ADEQUATE AMOUNT OF OUTPUT TODAY. SINUS RHTYHM WITH PAC'S ON THE MONITOR, OTHER VITALS REMAIN STABLE.
--- NOTE | 2021-01-11 02:13 | NUR ---
ASSUMED CARE AT 1900 PT IS ALERT/ORIENTED X4 AND ABLE TO MAKE HIS NEEDS KNOWN. PT C/O 10/10 PAIN TO BACK AND SHOULDERS, PRN AVAILABLE AND GIVEN BRINGING PAIN DOWN TO 5/10. SPO2 >92% ON 2L NC, NO C/O DYSPNEA. AFEBRILE. HR 70-80'S. SBP 140-160. NO C/O NAUSEA OR EMISIS, PT ON A FULL LIQUID DIET. 24HR URINE COLLECTION TO BE COMPLETE AT 0200. PT IS SALINE LOCKED. POWERGLIDE TO ARVIN FLUSHES AND DRAWS. SEE SHIFT ASSESSMENT FOR FULL ASSESSMENT.
[2021-01-11 04:17] LABS: Hematocrit 28.3 % (37.0-53.0)
[2021-01-11 04:36] LABS: Albumin, Blood 3.2 g/dL (3.4-5.0); Anion Gap 8 mmol/L (6-16); Blood Urea Nitrogen 73 mg/dL (8-24); Bun/Creatinine Ratio 40.1 (12.0-20.0); CO2, Blood 28 mmol/L (21-32); Calcium, Blood 8.6 mg/dL (8.5-10.1); Chloride, Blood 98 mmol/L (98-108); Creatinine, Blood 1.82 mg/dL (0.60-1.20); Glomerular Filtration Rate 39 (60-); Glucose, Blood 167 mg/dL (70-99); Magnesium, Blood 2.2 mg/dL (1.6-2.4); Phosphorus, Blood 3.5 mg/dL (2.5-4.9); Potassium, Blood 4.6 mmol/L (3.5-5.5); Sodium, Blood 134 mmol/L (136-145)
--- NOTE | 2021-01-11 07:11 | NUR ---
END OF SHIFT SUMMARY PT SLEPT MINIMALLY T/O THE SHIFT. PT IS ALERT/ORIENTED X4 AND ABLE TO MAKE HIS NEEDS KNOWN. SPO2 >95% ON 2L NC. AFEBRILE. HR 70-80'S. SBP 130-150. PT ABLE TO USE URINAL. PT IS SALINE LOCKED. 24HR URINE SENT TO LAB AT 0200. REPORT GIVEN TO BECKY OWEN.
--- NOTE | 2021-01-11 10:24 | NUR ---
MOI HAS BEEN ENGAGING AND TALKATIVE WITH THIS RN. HE TAKES HIS DIET WELL, HE DRINKS WELL, USES THE URINAL. HE WAS ASKING FOR SOLID FOOD, ORDERS RECEIVED WHEN CAME THROUGH. ALSO TO START WORKING WITH PT/OT. LIDOCAINE PATCHES PLACED MID THORAX AND LOW BACK. PT UNABLE TO LIE FLAT TO TURN R/T HIS BREATHING, HE SAT UPRIGHT AND LEANED FORWARD FOR ME TO PLACE THE PATCHES. HE WAS VERY SHORT OF BREATH DURING THE PROCESS, TOOK SEVERAL MINUTES TO RECOVER.
--- NOTE | 2021-01-11 17:28 | NUR ---
MOI JUST FINISHED DINNER WHILE SITTING UP IN THE CHAIR, HE IS LOOKING FORWARD TO MOVING TO MEDICAL FLOOR, THIS IS ONE STEP CLOSER TO HOME. HE HAS DONE WELL IN THE CHAIR SINCE WORKING WITH [employer]. HE SAID IT'S A NICE CHANGE. HE HAS NAPPED ON AND OFF THIS AFTERNOON, BEEN EATING VERY WELL. HE DOES CONTINUE TO GET SUPER SHORT OF BREATH WITH ACTIVITY, HE RECOVERS FAIRLY WELL WITHIN 5 MINUTES, BUT HE FEELS A BIT OF A PANIC WHEN GETS THAT WAY. HE DID HAVE A PRN VENTOLIN INHALATION AFTER GETTING IN THE CHAIR. HIS LIDOCAINE PATCHES REMAIN IN PLACE. WILL GIVE REPORT WHEN NURSE IS AVAILABLE.
--- NOTE | 2021-01-11 17:56 | NUR ---
REPORT GIVEN TO LEXIE HARRISON, PT'S BELONGINGS GATHERED, HE TRANSFERRED TO THE W/C WITH THE FWW, BECAME VERY SHORT OF BREATH, STATES DOESN'T USE OXYGEN AT HOME. I DISCUSSED WITH HIM, HE MAY NEED IT AT HOME UNTIL THEY GET HIS BREATHING UNDER CONTROL.
--- NOTE | 2021-01-11 18:37 | NUR ---
MOVED HERE FROM ICU, A+O, TALKING ON PHONE AND WATCHING TV, RM AIR, SALINE LOCKED, ASKED FOR A URINAL
--- NOTE | 2021-01-12 04:20 | NUR ---
SHIFT SUMMARY PATIENT HAD NO ACUTE CHANGES OBSERVED. AXOX 3 AND ONE ASSIST W/FWW TO BSC. POWERGLIDE KAY INTACT. IV SOLU-MEDROL GIVEN PER EMAR. SCHEDULE OXYCONTIN 10 MG GIVEN FOR REPORTED BACK PAIN. HYPERTENSIVE THIS SHIFT. AFEBRILE. SOB W/EXERTION. USES URINAL AT BEDSIDE. RT IN FOR BREATHING TX. RESERVATION CLERK REPORTS NSR 94-97 W/PVC. CALL LIGHT IN REACH. BED IN LOWEST POSITION. WILL CONTINUE TO MONITOR UNTIL DAY SHIFT NURSE ASSUMES CARE.
[2021-01-12 05:33] LABS: Hematocrit 27.4 % (37.0-53.0); Hemoglobin 8.8 g/dL (13.5-17.5)
[2021-01-12 05:53] LABS: Albumin, Blood 3.1 g/dL (3.4-5.0); Anion Gap 8 mmol/L (6-16); Blood Urea Nitrogen 65 mg/dL (8-24); Bun/Creatinine Ratio 40.1 (12.0-20.0); CO2, Blood 29 mmol/L (21-32); Calcium, Blood 8.4 mg/dL (8.5-10.1); Chloride, Blood 96 mmol/L (98-108); Creatinine, Blood 1.62 mg/dL (0.60-1.20); Glomerular Filtration Rate 45 (60-); Glucose, Blood 172 mg/dL (70-99); Magnesium, Blood 2.2 mg/dL (1.6-2.4); Phosphorus, Blood 3.5 mg/dL (2.5-4.9); Potassium, Blood 4.6 mmol/L (3.5-5.5); Sodium, Blood 133 mmol/L (136-145)
--- NOTE | 2021-01-12 19:32 | NUR ---
a+o, cooprative with staff, medicated as prescribed, got out of bed with encouragement from staff but was very eager to get back in, call light in reach, medicated as prescribed for pain, saline locked, candy gallo, bsr shared with noc nurse
--- NOTE | 2021-01-13 03:07 | NUR ---
SHIFT SUMMARY PATIENT HAD NO ACUTE CHANGES OBSERVED. AXO X 3 AND ONE ASSIST TO BSC. POWERGLIDE KAY INTACT. SALES SUPPORT SPECIALIST REPORTS NSR W/PAC AT 97. SCHEDULE OXYCONTIN AND OXYCODONE PRN FOR BACK PAIN. VSS/AFEBRILE. DENIES SOB AND N/V. RT IN FOR MULTIPLE BREATHING TX. CALL LIGHT IN REACH. BED IN LOWEST POSITION. WILL CONTINUE TO MONITOR UNTIL DAY SHIFT NURSE ASSUMES CARE.
[2021-01-13 06:05] LABS: Hematocrit 29.1 % (37.0-53.0); Hemoglobin 9.2 g/dL (13.5-17.5)
[2021-01-13 06:21] LABS: Albumin, Blood 3.2 g/dL (3.4-5.0); Anion Gap 7 mmol/L (6-16); Blood Urea Nitrogen 62 mg/dL (8-24); Bun/Creatinine Ratio 43.7 (12.0-20.0); CO2, Blood 29 mmol/L (21-32); Calcium, Blood 8.7 mg/dL (8.5-10.1); Chloride, Blood 97 mmol/L (98-108); Creatinine, Blood 1.42 mg/dL (0.60-1.20); Glomerular Filtration Rate 52 (60-); Glucose, Blood 203 mg/dL (70-99); Magnesium, Blood 2.3 mg/dL (1.6-2.4); Phosphorus, Blood 3.4 mg/dL (2.5-4.9); Potassium, Blood 4.2 mmol/L (3.5-5.5); Sodium, Blood 133 mmol/L (136-145)
[2021-01-13 08:07] LABS: ANTIGLOMERULAR BM AB 3 units (0-20)
--- NOTE | 2021-01-13 14:10 | NUR ---
ADVISED OF POSSIBLE FUNGAL INFECTION PANUS. OK TO ORDER NYSTATIN
--- NOTE | 2021-01-13 18:02 | NUR ---
ALERT. ORIENTED. MEDICATED FOR BACK PAIN W/SCHEDULED LONG ACTING MEDS AND ALSO SHORT ACTING WHICH MAKES HIM COMFORTABLE BUT DOES NOT TAKE PAIN COMPLETELY AWAY PER PATIENT. WORKING W/P.T./O.T. EXERTIONAL SOB AND TAKES FEW MINUTES TO RECOVER. HAD A COUPLE MINUTES OF ST IN 120'S X ONCE. COOPERATIVE. TELE. R.A. TM
[2021-01-14 05:09] LABS: Hemoglobin 9.2 g/dL (13.5-17.5)
[2021-01-14 05:36] LABS: Albumin, Blood 3.1 g/dL (3.4-5.0); Anion Gap 6 mmol/L (6-16); Blood Urea Nitrogen 61 mg/dL (8-24); Bun/Creatinine Ratio 43.6 (12.0-20.0); CO2, Blood 30 mmol/L (21-32); Calcium, Blood 8.4 mg/dL (8.5-10.1); Chloride, Blood 99 mmol/L (98-108); Glomerular Filtration Rate 53 (60-); Glucose, Blood 183 mg/dL (70-99); Magnesium, Blood 2.3 mg/dL (1.6-2.4); Phosphorus, Blood 3.8 mg/dL (2.5-4.9); Potassium, Blood 4.5 mmol/L (3.5-5.5); Sodium, Blood 135 mmol/L (136-145)
--- NOTE | 2021-01-14 06:14 | NUR ---
SUMMARY: A/OX4, CALLS APPROPRIATELY FOR ASSIST AND IS PLEASANT/COOPERATIVE W/ CARE. HE CONT'S TO REPORT NAGGING BACK PAIN FROM COMPRESSION FX'S W/ SCHEDULED OXYCONTIN AND PRN ROXICODONE RECIEVED PRN FOR EFFECTIVE RELIEF. PT ASSISTED W/ REPOSITIONING AND MOBILITY ENCOURAGED TOLERATED. HE'S NSR/S.TACH W/PAC'S AT 90'S-100'S BPM, NO S/S CARDIAC DISTRESS. R.ARM REMAINS SWOLLEN BELOW PG BUT IT APPEARS PATENT/DRAINING. PT ON LASIX FOR CHF AND EDEMA NOTED TO BLE'S W/LEGS ELEVATED IN BED. HE GETS SOB W/EXERTION AND HAS SHALLOW RESPS AT REST BUT SPO2 IS WNL ON RA. NYSTATIN OINTMENT APPLIED TO R.GROIN W/OPEN DRY SORES NOTED. NO ACUTE CHANGES, VSS/AFEBRILE. WCTM AND REPORT TO DAY RN.
[2021-01-14 12:03] LABS: M-SPIKE, % Not Observed % (Not Observed); PROTEIN,TOTAL,URINE 4.3 mg/dL (Not Estab.)
[2021-01-14 13:08] LABS: A/G RATIO 1.5 (0.7-1.7); ALBUMIN 3.2 g/dL (2.9-4.4); ALPHA-1-GLOBULIN 0.2 g/dL (0.0-0.4); ALPHA-2-GLOBULIN 0.8 g/dL (0.4-1.0); ANA DIRECT Negative (Negative); ANTIMYELOPEROXIDASE (MPO) ABS <9.0 U/mL (0.0-9.0); ANTIPROTEINASE 3 (PR-3) ABS <3.5 U/mL (0.0-3.5); ATYPICAL PANCA <1:20 titer (Neg:<1:20); BETA GLOBULIN 0.8 g/dL (0.7-1.3); CYTOPLASMIC (C-ANCA) <1:20 titer (Neg:<1:20); GAMMA GLOBULIN 0.4 g/dL (0.4-1.8); GLOBULIN, TOTAL 2.2 g/dL (2.2-3.9); IMMUNOGLOBULIN A, QN, SERUM 116 mg/dL (61-437); IMMUNOGLOBULIN G, QN, SERUM 398 mg/dL (603-1613); IMMUNOGLOBULIN M, QN, SERUM 30 mg/dL (20-172); M-SPIKE Not Observed g/dL (Not Observed); PERINUCLEAR (P-ANCA) <1:20 titer (Neg:<1:20); PROTEIN, TOTAL, SERUM 5.4 g/dL (6.0-8.5)
--- NOTE | 2021-01-14 17:47 | NUR ---
PT WAS SHOWING LABORED BREATHING, THOUGH HIS 02 SATS REMAINED HIGH. LUNGS SOUNDED WET. BREATHING TREATMENTS GIVEN PER ORDERS. PT EDUCATED REGARDING TRIPOD BREATHING. PAIN MED GIVEN PER PT REQUEST DUE TO BACK PAIN. RESPIRATIONS CAME DOWN AND BREATHING BECAME MORE STABLE WITH PT REPORTING NO DISTRESS BY END OF SHIFT. PT HAS KEPT BLOOD PRESSURE ABOVE 130 SYSTOLIC ALL SHIFT. CALL LIGHT WITHIN REACH.
--- NOTE | 2021-01-14 20:40 | NUR ---
INTERMEDIATE CARD TENDER ALERTED RN OF HR 139 BPM. PCU PHOTOGRAPHIC REPRODUCTION TECHNICIAN (November) EXPLAINED THAT PT WAS IN FACT NSR W/FREQ PAC'S AT 96 BPM BUT THE FREQUENCY OF PAC'S MAKES HIS RATE APPEAR MORE TACHY THEN HE REALLY IS. PT DOES BECOME SOB AND TACHYCARDIC WHEN IN PAIN AND HE REPORTED 9/10 BACK PAIN WHEN VITALS WERE COMPLETED. PRN ROXICODONE WAS RECIEVED AT 2032 AND STAFF ARE AWAITING EFFECT. WCTM.
--- NOTE | 2021-01-15 05:29 | NUR ---
SUMMARY: A/OX4, CALLS APPROPRIATELY AND PLEASANT/COOPERATIVE W/CARE. HE IS HOPEFULL TO D/C HOME TODAY PENDING HOME O2 EVAL AND IS REFUSING SNF. HIS MOTHER IS APPARENTLY UNCOMFORTABLE W/HOME HEALTH BUT HE REPORTS FEELING CAPABLE OF SELF CARE DESPITE DYSPNEA AND SOB W/VERY MINIMAL EXERTION. DECREASED MOBILITY PERSISTS D/T BACK PAIN AND HE WAS MEDICATED T/O NOCTE W/SCHEDULED OXYCONTIN AND PRN ROXICODONE FOR TOLERABLE PAIN CONTROL. HE STILL BECOMES VERY TACHYPNEIC W/SHALLOW LABORED RESPS WHEN IN PAIN OR REPOSITIONING BUT RECOVERS W/PAIN CONTROL AND AT REST. RT PROVIDED BX TX'S PRN AND WHEEZES AUSCULTATED TO R.LOBE. EXT'S REMAIN EDEMATOUS AND ELEVATED ON PILLOWS. NYSTATIN APPLIED TO R.ABDO FOLD, SORES NOTED. NO ACUTE CHANGES, VSS/AFEBRILE. PT WAS NSR W/FREQ PAC'S AT 90'S-100'S BPM BUT RATE OCC REFLECTS HIGHER D/T FREQ OF PAC'S PER GLASSINE MACHINE TENDER. WCTM AND REPORT TO DAY RN.
[2021-01-15 05:32] LABS: Hematocrit 30.8 % (37.0-53.0); Hemoglobin 9.6 g/dL (13.5-17.5); Mean Corpuscular HGB 27.4 pg (26.0-34.0); Mean Corpuscular HGB Conc 31.2 g/dL (31.5-36.5); Mean Corpuscular Volume 88 fL (80-100); Mean Platelet Volume 10.4 fL (9.1-12.4); NRBC ABSOLUTE 0.33 K/mm3 (0.00-0.02); NRBC Auto 1.9 /100 WBC (0.0-0.2); Platelet Count 210 K/mm3 (150-400); RDW Coefficient Variation 17.2 % (11.7-14.2); RDW Standard Deviation 54.6 fL (35.1-46.3); White Blood Cell Count 17.17 K/mm3 (4.00-11.30)
[2021-01-15 05:55] LABS: Anion Gap 7 mmol/L (6-16); Blood Urea Nitrogen 64 mg/dL (8-24); Bun/Creatinine Ratio 49.2 (12.0-20.0); CO2, Blood 29 mmol/L (21-32); Calcium, Blood 8.2 mg/dL (8.5-10.1); Chloride, Blood 99 mmol/L (98-108); Glomerular Filtration Rate 58 (60-); Glucose, Blood 258 mg/dL (70-99); Magnesium, Blood 2.5 mg/dL (1.6-2.4); Phosphorus, Blood 3.6 mg/dL (2.5-4.9); Potassium, Blood 4.4 mmol/L (3.5-5.5); Sodium, Blood 135 mmol/L (136-145)
[2021-01-15 06:29] LABS: BAND PERCENT MAN 1 % (0-8); BASOPHILS PERCENT MAN 0 % (0-2); EOSINOPHILS PERCENT MAN 0 % (0-6); LYMPHOCYTES ABSOLUTE MAN 0.51 K/mm3 (0.84-5.20); LYMPHOCYTES PERCENT MAN 3 % (21-46); METAMYELOCYTE ABSOLUTE MAN 0.17 K/mm3 (0.00-0.00); METAMYELOCYTE PERCENT MAN 1 % (0-0); MONOCYTES ABSOLUTE MAN 0.17 K/mm3 (0.16-1.47); MONOCYTES PERCENT MAN 1 % (4-13); MYELOCYTE ABSOLUTE MAN 0.34 K/mm3 (0.00-0.00); MYELOCYTE PERCENT MAN 2 % (0-0); NEUTROPHILS ABSOLUTE MAN 15.96 K/mm3 (1.96-9.15); SEG NEUTROPHILS PERCENT MAN 92 % (41-73); TOTAL CELLS COUNTED 100
[2021-01-15 10:39] LABS: Appearance, Urine Clear (Clear); Bilirubin, Urine Neg (Neg); Blood, Urine Neg (Neg); Color, Urine Yellow (P-Yellow); Glucose Qualitative, Urine Neg (Neg); Ketones, Urine Neg (Neg); Leukocyte Esterase, Urine Neg (Neg); Nitrite, Urine Neg (Neg); Protein, Urine Neg (Neg); Urobilinogen, Urine NORM (Normal)
--- NOTE | 2021-01-15 13:00 | NUR ---
TACHYCARDIA WITH AMBULATION TELETECH CALLED ROSE OWEN AT APPROX 1240 THAT PATIENTS HEARTRATE WAS IN THE 140S AND SUSTAINING. WHEN PATIENT WAS CHECKED ON, PATIENT WAS IN THE BATHROOM ATTEMPTING A BOWEL MOVEMENT. AT THIS TIME, TELETECH SAID PATIENTS HEARTRATE DECREASED TO THE 120S. TACHYPNEA AND DYSNPNEA OBSERVED WITH EXERTION. PATIENT ASSISTED BACK TO BED AND RECOVERED TO BASELINE WITHIN 5 MINUTES. PATIENT HEARTRATE DECREASED TO 108 AND PATIENTS RESPIRATIONS DECREASED TO 20 BREATHS/MIN. PATIENT SATTING ABOUT 96 PERCENT THROUGHOUT EVENT.
--- NOTE | 2021-01-15 18:30 | NUR ---
SHIFT SUMMARY PATIENT IS ALERT AND ORIENTATED X4. PATIENT CALLS APPROPRIATELY AND HAS BEEN COOPERATIVE WITH CARE. PATIENT HAS COMPLAINED OF BACK PAIN THROUGHOUT SHIFT. MEDICATED PER EMAR PRN. PATIENT HAS URINE AND SPUTEM SAMPLES SENT TO LAB. PATIENT GETS SHORT OF BREATH WITH EXERTION. PATIENT BECAME TACHYCARDIC WHILE AMBULATING TO THE BATHROOM AND CURRENTLY FLUCTUATING BETWEEN 90-115 PER TELETECH MOLINA. VITAL SIGNS REVIEWED. CALL LIGHT WITHIN REACH.
--- NOTE | 2021-01-15 18:45 | NUR ---
UTILITY AIDE DOC REVIEW THIS RN ASSESSED THE PT. THIS RN REVIEWED & AGREES WITH UTILITY AIDE'S ASSESSMENT & DOCUMENTATION.
--- NOTE | 2021-01-16 04:25 | NUR ---
BACK WINDER SUMMARY PT A/O X4. SLEPT WELL TONIGHT. CONTINUES TO BE ON 5L O2 VIA NC SATTING IN THE MID 90'S. PT GETS SOB WITH MINIMAL EXERTION. TELE RUNNING SINUS W/PAC'S IN THE 70'S. MEDICATED FOR PAIN OVERNIGHT. DENIES NAUSEA, DIZZINIESS. USES URINAL INDEPENDENTLY IN BED. USES CALL LIGHT APPROPRIATELY. VSS, NO ACUTE CHANGES. CALL LIGHT WITHIN REACH.
[2021-01-16 05:14] LABS: Hematocrit 32.8 % (37.0-53.0); Hemoglobin 10.2 g/dL (13.5-17.5); Mean Corpuscular HGB 27.3 pg (26.0-34.0); Mean Corpuscular HGB Conc 31.1 g/dL (31.5-36.5); Mean Corpuscular Volume 88 fL (80-100); Mean Platelet Volume 10.3 fL (9.1-12.4); NRBC ABSOLUTE 0.35 K/mm3 (0.00-0.02); NRBC Auto 2.1 /100 WBC (0.0-0.2); Platelet Count 179 K/mm3 (150-400); RDW Coefficient Variation 17.1 % (11.7-14.2); RDW Standard Deviation 54.1 fL (35.1-46.3); Red Blood Cell Count 3.74 M/mm3 (4.30-5.90); White Blood Cell Count 16.81 K/mm3 (4.00-11.30)
[2021-01-16 05:37] LABS: BAND PERCENT MAN 1 % (0-8); BASOPHILS PERCENT MAN 0 % (0-2); EOSINOPHILS PERCENT MAN 0 % (0-6); LYMPHOCYTES ABSOLUTE MAN 0.67 K/mm3 (0.84-5.20); LYMPHOCYTES PERCENT MAN 4 % (21-46); MONOCYTES ABSOLUTE MAN 1.34 K/mm3 (0.16-1.47); MONOCYTES PERCENT MAN 8 % (4-13); NEUTROPHILS ABSOLUTE MAN 14.79 K/mm3 (1.96-9.15); SEG NEUTROPHILS PERCENT MAN 87 % (41-73); TOTAL CELLS COUNTED 100
[2021-01-16 05:39] LABS: Albumin, Blood 3.2 g/dL (3.4-5.0); Anion Gap 6 mmol/L (6-16); Blood Urea Nitrogen 73 mg/dL (8-24); CO2, Blood 33 mmol/L (21-32); Calcium, Blood 8.2 mg/dL (8.5-10.1); Chloride, Blood 98 mmol/L (98-108); Creatinine, Blood 1.46 mg/dL (0.60-1.20); Glomerular Filtration Rate 51 (60-); Glucose, Blood 180 mg/dL (70-99); Magnesium, Blood 2.6 mg/dL (1.6-2.4); Phosphorus, Blood 4.5 mg/dL (2.5-4.9); Sodium, Blood 137 mmol/L (136-145)
--- NOTE | 2021-01-16 08:50 | NUR ---
02 APPLIED TO PATIENT. PATIENT APPEARED DIFFICULTY BREATHING AT 0840. PATIENT SATTING AT 90-91 ON RA. PATIENT PLACED ON 1L AND SATS IMPROVED TO 95-96 IMMEDIATELY. PATIENT STATES THAT HE CAN BREATH BETTER WHEN O2 IS IN PLACE. PATIENT APPEARED TO HAVE RESPIRATIONS DECREASE AND LESS DYSPNEA WHEN [address] PATIENT LEFT WITH CALL LIGHT IN PLACE. PATIENT DENIES ADDITIONAL NEEDS.
[2021-01-16 13:10] LABS: Free Thyroxine 0.82 ng/dL (0.70-1.60); Thyroid Stimulating Hormone 0.172 uIU/mL (0.360-4.800)
--- NOTE | 2021-01-16 17:58 | NUR ---
SHIFT SUMMARY PATIENT A/OX4. DURING SHIFT PATIENT HAD 02 APPLIED AND REMOVED DURING PERIODS OF DYSPNEA (SEE ADDITIONAL NOTE). PT GETS DYSPNEA WITH MINIMAL EXERTION. TELE RUNNING SINUS W PACS BUNDLE BRANCH BLOCK IN THE 90S. PLAN TO HAVE A SLEEP STUDY DONE AT NIGHT. SEE EMAR FOR PAIN MANAGEMENT. AFTERNOON VITALS REASSESSED TO BE IN THE LOW 100S. PATIENT IS SATTING IN THE LOW 90S ON RA. VITAL SIGNS REVIEWED. BED IN LOWEST POSITION. PATIENT IS SATTING IN THE LOW 90S ON RA.
--- NOTE | 2021-01-16 18:19 | NUR ---
SOLVENT MIXER DOC REVIEW THIS RN ASSESSED THE PT. THIS RN REVIEWED & AGREES WITH SOLVENT MIXER'S DOCUMENTATION THIS SHIFT.
--- NOTE | 2021-01-17 04:32 | NUR ---
MEDICAL CLAIMS PROCESSOR SUMMARY PT A/O X4. SLEPT WELL TONIGHT. MEDICATED FOR PAIN OVERNIGHT. PT HAS SOB WITH MINIMAL EXERTION. DENIES CHEST PAIN, NAUSEA. ROOM AIR MAINTAINING GOOD SATS. SR IN THE 70'S TO SINUS TACH IN THE 110'S PER GLASS WORKER. NO ACUTE CHANGES. VSS. CALL LIGHT WITHIN REACH.
[2021-01-17 08:01] LABS: Albumin, Blood 3.1 g/dL (3.4-5.0); Anion Gap 8 mmol/L (6-16); Blood Urea Nitrogen 66 mg/dL (8-24); Bun/Creatinine Ratio 52.4 (12.0-20.0); CO2, Blood 30 mmol/L (21-32); Chloride, Blood 101 mmol/L (98-108); Creatinine, Blood 1.26 mg/dL (0.60-1.20); Glomerular Filtration Rate >60 (60-); Glucose, Blood 134 mg/dL (70-99); Magnesium, Blood 2.6 mg/dL (1.6-2.4); Phosphorus, Blood 3.5 mg/dL (2.5-4.9); Potassium, Blood 4.1 mmol/L (3.5-5.5); Sodium, Blood 139 mmol/L (136-145)
[2021-01-17 09:03] LABS: Prolactin 7.5 ng/mL (2.5-17.4); Triiodothyronine, Free 2.12 pg/mL (2.18-3.98)
--- NOTE | 2021-01-17 17:29 | NUR ---
PT IS ALERT AND ORIENTED AND ABLE TO EXPRESS ANY NEEDS. HE HAS EPISODES OF LABORED BREATHING SOB THOUGH O2 LEVELS REMAIN WNL. MEDS CHANGED THIS SHIFT. TELE REMOVED PER DOC ORDER. NO ACUTE CHANGES. CALL LIGHT WITHIN REACH.
--- NOTE | 2021-01-18 03:48 | NUR ---
Patient very painful all night. Sat up in the bed and dozed for brief periods at a time. Medicated 3 times over shift with breakthrough oxycodone. Patient started buspar at HS. voiding clear yellow urine in urinal. refused colace again last night. A&OX4,
[2021-01-18 04:44] LABS: BASOPHILS ABSOLUTE AUTO 0.03 K/mm3 (0.00-0.23); BASOPHILS PERCENT AUTO 0 % (0-2); EOSINOPHILS PERCENT AUTO 0 % (0-6); Hematocrit 33.5 % (37.0-53.0); Hemoglobin 10.4 g/dL (13.5-17.5); IMMATURE GRAN ABSOLUTE AUTO 0.55 K/mm3 (0.00-0.10); IMMATURE GRAN PERCENT AUTO 4 % (0-1); LYMPHOCYTES ABSOLUTE AUTO 0.36 K/mm3 (0.84-5.20); LYMPHOCYTES PERCENT AUTO 3 % (21-46); MONOCYTES ABSOLUTE AUTO 0.51 K/mm3 (0.16-1.47); MONOCYTES PERCENT AUTO 4 % (4-13); Mean Corpuscular HGB 27.2 pg (26.0-34.0); Mean Corpuscular Volume 88 fL (80-100); Mean Platelet Volume 10.6 fL (9.1-12.4); NEUTROPHILS ABSOLUTE AUTO 11.62 K/mm3 (1.96-9.15); NEUTROPHILS PERCENT AUTO 89 % (41-73); NRBC ABSOLUTE 0.03 K/mm3 (0.00-0.02); NRBC Auto 0.2 /100 WBC (0.0-0.2); Platelet Count 119 K/mm3 (150-400); RDW Coefficient Variation 17.2 % (11.7-14.2); RDW Standard Deviation 55.1 fL (35.1-46.3); Red Blood Cell Count 3.83 M/mm3 (4.30-5.90); White Blood Cell Count 13.07 K/mm3 (4.00-11.30)
[2021-01-18 05:06] LABS: Anion Gap 5 mmol/L (6-16); Blood Urea Nitrogen 65 mg/dL (8-24); Bun/Creatinine Ratio 48.9 (12.0-20.0); CO2, Blood 33 mmol/L (21-32); Calcium, Blood 7.6 mg/dL (8.5-10.1); Chloride, Blood 96 mmol/L (98-108); Creatinine, Blood 1.33 mg/dL (0.60-1.20); Glomerular Filtration Rate 56 (60-); Glucose, Blood 173 mg/dL (70-99); Magnesium, Blood 2.5 mg/dL (1.6-2.4); Phosphorus, Blood 4.1 mg/dL (2.5-4.9); Sodium, Blood 134 mmol/L (136-145)
--- NOTE | 2021-01-18 07:47 | NUR ---
BUMEX IV V.O. FROM DR. MICHAELS TO GIVE ONCE TIME DOSE OF 2MG IV BUMEX. EMAR UPDATED.
--- NOTE | 2021-01-18 17:42 | NUR ---
Shift Summary AOx3, pleasant and cooperative with care. Up in chair for breakfast and in bed for the rest of the day. Patient has been very tired. Medicated once for breakthrough pain with some relief. Appetite is good. Dyspnea with exertion, sats > 90% on RA. Easily arousable with verbal stimuli. C/O hand cramping which often occurs as a result of diuresing per patient state. Nystatin cream applied to abdominal fold. WCTM and report to oncoming RN.
--- NOTE | 2021-01-19 04:34 | NUR ---
CONCRETE PRODUCTS DISPATCHER SUMMARY patient awake almost all night. Initially Danielito discomfort seemed to be more under control than the previous night. his breathing appeared less labored, and he was actually sitting at the side of the bed. He did complain of discomfort in gluteal area which revealed two small red areas which looked like a heat rash. Area was cleansed well and patient was encouraged to lay on his side and change positions frequently to avoid skin breakdown. Open areas under abd fold were cleansed and exu dry dressing was placed to protect from skin on skin rubbing and serous drainage keeping wounds wet. Danielito required two breakthrough doses of 10 mg oxycodone to be comfortable through the night.
[2021-01-19 04:35] LABS: Hematocrit 33.7 % (37.0-53.0); Hemoglobin 10.8 g/dL (13.5-17.5)
[2021-01-19 05:01] LABS: Anion Gap 7 mmol/L (6-16); Blood Urea Nitrogen 65 mg/dL (8-24); Bun/Creatinine Ratio 46.1 (12.0-20.0); CO2, Blood 32 mmol/L (21-32); Calcium, Blood 7.8 mg/dL (8.5-10.1); Chloride, Blood 94 mmol/L (98-108); Creatinine, Blood 1.41 mg/dL (0.60-1.20); Glomerular Filtration Rate 53 (60-); Glucose, Blood 132 mg/dL (70-99); Magnesium, Blood 2.3 mg/dL (1.6-2.4); Phosphorus, Blood 2.7 mg/dL (2.5-4.9); Potassium, Blood 3.6 mmol/L (3.5-5.5); Sodium, Blood 133 mmol/L (136-145)
[2021-01-19] MEDS ORDERED: BUSP5 PO (09:54)
[2021-01-19] MEDS ORDERED: Cortef20 MG PO (09:54)
[2021-01-19] MEDS ORDERED: HYDCOR10 PO ×2 (09:55→09:56)
[2021-01-19] MEDS ORDERED: PREG150 PO (09:57)
[2021-01-19] MEDS ORDERED: EUTHYROX50 MCG PO (09:57)
--- NOTE | 2021-01-19 11:25 | NUR ---
Discharge Summary A/Ox3, pleasant and cooperative with care. Still dyspenic with exertion, had shower prior to discharge today. Discharging to home. Reviewed discharge paperwork with patient, questions answered to patient's satisfaction. Copy given. PG removed, WNL. Dressing to R lower abd fold changed and wound cleansed. Sent belongings home. Escorted by TEST LAB TECHNICIAN via w/c. Personal transport home by sister.
== END 2021-01-19 11:16 | disposition home or self-care (01) | DRG 643 ==
LOC: ER 16:54 → MEDS 20:14 → ICUW 20:14 → MEDS 01-11 15:55 → ENPENDDIS 01-14 13:13 → MEDS 01-17 11:21
PROVIDERS: Emergency Medicine; Internal Medicine; Internal Medicine Nephrology; Student in an Organized Health Care Education/Training Program; ADMIT Family Medicine
PROC: 5A09357 Assistance with Respiratory Ventilation, Less than 24 Consecutive Hours, Continuous Positive Airway Pressure (ICD-10-PCS; principal; 2021-01-08)
PROC: 3E033XZ Introduction of Vasopressor into Peripheral Vein, Percutaneous Approach (ICD-10-PCS; 2021-01-08)
PROC: 0DJ08ZZ Inspection of Upper Intestinal Tract, Via Natural or Artificial Opening Endoscopic (ICD-10-PCS; 2021-01-10)
DX: E27.40 Unspecified adrenocortical insufficiency (principal); R57.1 Hypovolemic shock; J96.01 Acute respiratory failure with hypoxia; N17.9 Acute kidney failure, unspecified; I13.0 Hypertensive heart and chronic kidney disease with heart failure and stage 1 through stage 4 chronic kidney disease, or unspecified chronic kidney disease; Z66 Do not resuscitate; Z68.41 Body mass index [BMI] 40.0-44.9, adult; E87.1 Hypo-osmolality and hyponatremia; B37.81 Candidal esophagitis; N25.81 Secondary hyperparathyroidism of renal origin; F11.20 Opioid dependence, uncomplicated; Z20.822 Contact with and (suspected) exposure to COVID-19; E87.5 Hyperkalemia; R94.31 Abnormal electrocardiogram [ECG] [EKG]; D72.829 Elevated white blood cell count, unspecified; I50.9 Heart failure, unspecified; E83.51 Hypocalcemia; R00.0 Tachycardia, unspecified; E66.01 Morbid (severe) obesity due to excess calories; J44.9 Chronic obstructive pulmonary disease, unspecified; E78.5 Hyperlipidemia, unspecified; K21.9 Gastro-esophageal reflux disease without esophagitis; M54.9 Dorsalgia, unspecified; G89.29 Other chronic pain; E03.9 Hypothyroidism, unspecified; G47.33 Obstructive sleep apnea (adult) (pediatric); N18.30 Chronic kidney disease, stage 3 unspecified; M19.90 Unspecified osteoarthritis, unspecified site; E11.22 Type 2 diabetes mellitus with diabetic chronic kidney disease; F41.9 Anxiety disorder, unspecified; I25.10 Atherosclerotic heart disease of native coronary artery without angina pectoris; F43.10 Post-traumatic stress disorder, unspecified; D63.1 Anemia in chronic kidney disease; Z85.51 Personal history of malignant neoplasm of bladder; Z88.8 Allergy status to other drugs, medicaments and biological substances; Z91.030 Bee allergy status; Z79.899 Other long term (current) drug therapy; Z79.52 Long term (current) use of systemic steroids; Z87.891 Personal history of nicotine dependence; Z98.890 Other specified postprocedural states
CPT/HCPCS: 36415; 36600; 70553; 71045; 71046; 76770; 80047; 80053; 80069; 80400; 81003; 82533; 82550; 82784; 82803; 82947; 83036; 83516; 83520; 83735; 83880; 84145; 84146; 84165; 84166; 84439; 84443; 84481; 84484; 85014; 85018; 85025; 86038; 86256; 86334; 86335; 87070; 87205; 93005; 93010; 93306; 93970; 94640; 94644; 94660; 94664; 94667; 94668; 94760; 94761; 94762; 96365; 96366; 96375; 96376; 97110; 97116; 97161; 97166; 97530; 99291-25; 99292; A9270; A9579; C1751; C9113; J0610; J0834; J0881; J1644; J1720; J1815; J1940; J2370; J2405; J2704; J2760; J2920; J2930; J3010; J7030; J7060; J7120; J7512; U0004